=== PATIENT | male | born 1930 | race Caucasian/White ===

== ENCOUNTER → 2016-10-01 11:06 | Outpatient (CLI) | payer MEDICARE, OTHER | END | disposition home or self-care (01) | LOC: D.CT 11:00 | DX: R10.84 Generalized abdominal pain (principal) ==

== ENCOUNTER 2016-10-28 17:42 | Inpatient (IN) | payer MEDICARE, OTHER ==
[~2016-10-28] VITALS: Ht 170.2 cm; Wt 80.6 kg
[2016-10-28 18:12] LABS: BASOPHILS 0.1 % (0-2); EOSINOPHILS 0.9 % (0-7); HEMATOCRIT 31.4 % (42.0-54.0); HEMOGLOBIN 10.5 g/dL (13.5-17.5); IMMATURE GRANULOCYTES 0.4 % (0-5); LYMPHOCYTES 15.9 % (15-50); MCH 34.4 pg (26.0-34.0); MCHC 33.4 g/dL (31.0-37.0); MEAN PLATELET VOLUME 11.1 fL (7.4-10.4); MONOCYTES 11.3 % (2-11); NEUTROPHILS 71.4 % (40-80); PLATELET COUNT 140 10x3/uL (130-400); RBC 3.05 10x6/uL (4.20-6.10); RDW 15.7 % (11.5-14.5)
[2016-10-28 18:26] LABS: ALBUMIN 3.2 g/dL (3.4-5.0); ANION GAP 12.6 mmol/L (8-16); BILIRUBIN - TOTAL 0.67 mg/dL (0.2-1.3); CALCIUM 8.5 mg/dL (8.5-10.1); CARBON DIOXIDE 28.4 mmol/L (21.0-32.0); CREATININE - SERUM 1.2 mg/dL (0.6-1.3); PROTEIN - SERUM 7.5 g/dL (6.4-8.2)
[2016-10-28 20:00] VITALS: BP 103/58
[2016-10-28 20:29] LABS: APPEARANCE CLEAR (CLEAR); BILIRUBIN NEGATIVE (NEGATIVE); COLOR DK YELLOW (YELLOW); GLUCOSE NEGATIVE (NEGATIVE); KETONE NEGATIVE (NEGATIVE); LEUKOCYTE ESTERASE NEGATIVE (NEGATIVE); NITRITE NEGATIVE (NEGATIVE); PROTEIN NEGATIVE (NEGATIVE); UROBILINOGEN NORMAL (NORMAL)
--- NOTE | 2016-10-28 20:33 | NUR ---
REPORT RECIEVED FROM RIDGE MARQUEZ IN ON TORITO NIEVES.
--- NOTE | 2016-10-28 20:35 | NUR ---
PT ARRIVED TO ROOM WITH HOSPITAL STAFF. TRANSFERED TO BED WITH MINIMAL ASSIST. PT HAS 2L OF O2 PRN FOR SOB. PT DENIES ANY SOB AT THIS TIME. PT A&O X4. NO S/S OF DISTRESS. PT ASKS FOR A PHONE BOOK AND HOW TO USE HIS ROOM PHONE, NO OTHER NEEDS. WILL CPOC
[2016-10-28] MEDS ORDERED: XALATAN 0.0052.5 ML (21:14)
[2016-10-28] MEDS ORDERED: CIPRODEX OTIC7.5 ML (21:16)
[2016-10-28] MEDS ORDERED: [UNRECOGNIZED DRUG - REMARK] (23:24)
[2016-10-28] MEDS ORDERED: [UNRECOGNIZED DRUG - SUPPLY] (23:25)
[2016-10-28] MEDS ORDERED: EFFER-K 25 MEQ25 MEQ PO (23:30)
[2016-10-28] MEDS ORDERED: FLOMAX0.4 MG PO (23:32)
[2016-10-28] MEDS ORDERED: CARDIOTEK RX TA1 TA1 PO (23:33)
[2016-10-28] MEDS ORDERED: CO Q-10200 MG PO (23:34)
[2016-10-28] MEDS ORDERED: PROBIOTIC250 MG PO (23:35)
[2016-10-28] MEDS ORDERED: FISH OIL 1,2001 CAP PO (23:35)
[2016-10-28] MEDS ORDERED: VITAMIN D2000 UNIT PO (23:37)
[2016-10-28] MEDS ORDERED: VITAMIN B-12500 MC1 PO (23:40)
[2016-10-28] MEDS ORDERED: FOLIC ACID1 MG PO (23:42)
[2016-10-28] MEDS ORDERED: VITAMIN B650 MG PO (23:43)
[2016-10-28] MEDS ORDERED: SAW PALMETTO450 MG PO (23:43)
[2016-10-28] MEDS ORDERED: [UNRECOGNIZED DRUG - OTHER] (23:47)
[2016-10-28] MEDS ORDERED: [UNRECOGNIZED DRUG - OTHER] (23:48)
[2016-10-29] VITALS (7 sets, daily range): BP systolic 98–132; BP diastolic 51–70; Ht 170.2 cm; Wt 80.6 kg
--- NOTE | 2016-10-29 01:18 | NUR ---
PT RESTING AT BEDSIDE. NS INFUSING TO LEFT FOREARM AT 100. DENIES ANY NEEDS. NO S/S OF DISTRESS. BED LOW AND CALL LIGHT WITHIN REACH. WILL CPOC
--- NOTE | 2016-10-29 04:55 | NUR ---
PT ASLEEP. RESPIRATIONS EVEN AND UNLABORED. NO S/S OF DISTRESS. BED LOW AND CALL LIGHT WITHIN REACH. NS INFUSING @ 100 TO LEFT FOREARM IV. WILL CPOC
--- NOTE | 2016-10-29 07:30 | NUR ---
AM ROUNDS- PT UP AD REYNA TO BATHROOM. DENIES ANY NEEDS AT THIS TIME. LT FA IV INFUSING NS AT 100. NAD NOTED, WILL CONTINUE TO MONITOR.
--- NOTE | 2016-10-29 10:44 | NUR ---
NEW BAG OF IVF HUNG AT THIS TIME. AND GAVE PROBIOTIC SCHEDULED. PT IN BED, DENIES ANY NEEDS AT THIS TIME. CALL LIGHT IN REACH, RESP EVEN AND UNLABORED, NAD NOTED, WILL CONTINUE TO MONITOR.
[2016-10-29 16:08] LABS: HEMOGLOBIN A1C 6.2 % (4.8-6.0)
--- NOTE | 2016-10-29 19:52 | NUR ---
PT RESTING IN ROOM. PT STATES HE IS NOT IN PAIN. PT ASLO DENIES ANY NEEDS. NO S/S OF DISTRESS. NS INFUSING TO LEFT FOREARM IV @ 100. BED LOW AND CALL LIGHT WITHIN REACH. WILL CONTINUE POC
[2016-10-30] VITALS: BP 115/76
--- NOTE | 2016-10-30 00:25 | NUR ---
PT ARRIVED IN ROOM. AT BEDSIDE. PICC LINE IN RIGHT UPPER ARM DRESSING CDI. WALKER FROM HOME IN PT ROOM. PT C/O PAIN 6/10 IN LEFT KNEE THAT IS DULL IN THE KNEE AND RADIATES TO ANKLE AND WILSON AND IS SHARP. PT NEEDS ASSIST TO URINATE IN URINAL. LAST OUTPUT 225CC YELLOW. KNEE BRACE AT BEDSIDE MUST BE USED FOR ANY ACTIVITY. PT IS TO KEEP HIS LEG STRAIGHT AND NOT HAVE A BENT KNEE. DRESSING COVERING HIS INCISON ON LEFT KNEE. START OF INCISION OUT OF DRESSING IS APPROXIMATED AND HAS GRACE. PT HAS PITTING 2+ EDEMA ON BILAT LOWER EXTREM. ALSO HAS EDEMA IN GROIN AREA, PENIS AND SCROTUM. PT DENIES ANY NEEDS AT THIS TIME. NO S/S OF DISTRESS. 2L OF O2 VIA NC. BED LOW AND CALL LIGHT WITHIN REACH WILL CPOC .
--- NOTE | 2016-10-30 01:50 | NUR ---
PT IV PUMP IS ALARMING OCCULDED. FLUSHED PT IV NO PAIN, NO SWELLING. REDNESS IS NOTED. DRESSING CDI. PT DENIES ANY NEEDS. NO S/S OF DISTRESS. WILL CPOC
[2016-10-30 04:00] VITALS: BP 110/64
[2016-10-30 06:47] LABS: BASOPHILS 0.3 % (0-2); EOSINOPHILS 1.7 % (0-7); HEMATOCRIT 29.6 % (42.0-54.0); HEMOGLOBIN 9.8 g/dL (13.5-17.5); IMMATURE GRANULOCYTES 0.3 % (0-5); LYMPHOCYTES 27.6 % (15-50); MCH 33.7 pg (26.0-34.0); MCHC 33.1 g/dL (31.0-37.0); MCV 101.7 fL (80.0-100.0); MEAN PLATELET VOLUME 11.5 fL (7.4-10.4); MONOCYTES 13.1 % (2-11); PLATELET COUNT 151 10x3/uL (130-400); RBC 2.91 10x6/uL (4.20-6.10); RDW 15.8 % (11.5-14.5)
[2016-10-30 06:50] LABS: WBC 6.4 10x3/uL (4.8-10.8)
[2016-10-30 07:03] LABS: CALC OSMOLALITY 280 mosm/kg (275-300); CALCIUM 8.2 mg/dL (8.5-10.1); CARBON DIOXIDE 23.6 mmol/L (21.0-32.0); CHLORIDE - SERUM 105 mmol/L (98-107); CREATININE - SERUM 0.9 mg/dL (0.6-1.3); GLUCOSE 117 mg/dL (74-106); POTASSIUM - SERUM 4.5 mmol/L (3.5-5.1); SODIUM 139 mmol/L (136-145); UREA NITROGEN 17 mg/dL (7-18); eGFR NON AFRICAN AMERICAN 85 mL/min (90-120)
--- NOTE | 2016-10-30 07:29 | NUR ---
AM ROUNDS- PT IN BED, STATES THAT HE HAS BEEN UP TO THE BATHROOM ABOUT 20 TIMES DURING THE NIGHT, HE DOES NOT WANT IV FLUIDS ON UNTIL HE TALKS TO THE DOCTOR. STATES " NO DOCTOR CAME IN TO SEE ME YESTERDAY, ARE THEY GOING TO COME TODAY". INFORMED PT THAT SOMEONE WOULD BE IN TO SEE HIM TODAY, WILL LEAVE IVF OFF UNTIL DOCTOR MAKES ROUNDS. PT DENIES ANY OTHER NEEDS AT THIS TIME. BED LOW AND WHEELS LOCKED, BEDSIDE RAILS X2, TELEMETRY SHOWING SR 81, PT ON RA, RESP EVEN AND UNLABORED. CALL LIGHT IN REACH, NAD NOTED, WILL CONTINUE TO MONITOR.
--- NOTE | 2016-10-30 07:44 | NUR ---
PT RESTING IN BED, C/O URINE FREQUENCY. STATES HE DOES NOT URINATE THIS MUCH AT HOME. URINE CULTURE HAS NO GROWTH X2 DAYS NO S/S OF DISTRESS. NO OTHER NEEDS WILL CPOC
[2016-10-30 08:00] VITALS: BP 117/75
--- NOTE | 2016-10-30 09:09 | NUR ---
AMINISTERED MORNING MEDS PT IN BED, DENIES ANY NEEDS AT THIS TIME. CALL LIGHT IN REACH, NAD NOTED, WILL CONTINUE TO MONITOR.
[2016-10-30 12:00] VITALS: BP 116/59
[2016-10-30 16:00] VITALS: BP 114/67
[2016-10-30 16:42] LABS: % SATURATION 45 % (15-55); IRON 103 ug/dl (35-150); TOTAL IRON BIND CAPACITY 224 ug/dl (260-445); UNSAT IRON BIND CAPACITY 121 ug/dl (150-375)
[2016-10-30 20:00] VITALS: BP 127/65
--- NOTE | 2016-10-30 20:02 | NUR ---
PT RESTING IN BED. DENIES ANY NEEDS, NO S/S OF DISTRESS. BED LOW CALL LIGHT IN REACH. PT WILL CALL IF ANY NEEDS WILL CPOC
[2016-10-31 04:00] VITALS: BP 116/94
--- NOTE | 2016-10-31 04:28 | NUR ---
PT RESTING IN BED, LAB DRAWING BLOOD, PT DENIES ANY NEEDS. NO S/S OF DISTRESS. . BED LOW AND CALL LIGHT WITHIN REACH. WILL CPOC
[2016-10-31 04:48] LABS: BASOPHILS 0.1 % (0-2); EOSINOPHILS 1.1 % (0-7); HEMATOCRIT 32.4 % (42.0-54.0); HEMOGLOBIN 10.8 g/dL (13.5-17.5); IMMATURE GRANULOCYTES 0.6 % (0-5); LYMPHOCYTES 34.6 % (15-50); MCH 33.6 pg (26.0-34.0); MCHC 33.3 g/dL (31.0-37.0); MCV 100.9 fL (80.0-100.0); MEAN PLATELET VOLUME 10.4 fL (7.4-10.4); MONOCYTES 11.4 % (2-11); NEUTROPHILS 52.2 % (40-80); PLATELET COUNT 153 10x3/uL (130-400); RBC 3.21 10x6/uL (4.20-6.10); RDW 15.7 % (11.5-14.5)
[2016-10-31 05:02] LABS: ANION GAP 12.1 mmol/L (8-16); CALCIUM 8.6 mg/dL (8.5-10.1); CARBON DIOXIDE 26.1 mmol/L (21.0-32.0); CREATININE - SERUM 1.1 mg/dL (0.6-1.3); POTASSIUM - SERUM 4.2 mmol/L (3.5-5.1)
--- NOTE | 2016-10-31 06:38 | NUR ---
PT DENIES ANY NEEDS. PT RESTING IN BED. DENIES ANY PAIN. NO S/S OF DISTRESS. BED LOW CALL LIGHT WITHIN REACH WILL CPOC
[2016-10-31 08:00] VITALS: BP 123/68
--- NOTE | 2016-10-31 08:32 | NUR ---
ADMINISTERED AM MEDS. PT IN BED, EATING BREAKFAST, DENIES ANY NEEDS AT THIS TIME. CALL LIGHT IN REACH, NAD NOTED, WILL CONTINUE TO MONITOR.
[2016-10-31 12:00] VITALS: BP 126/77
[2016-10-31] MEDS ORDERED: LEVAQUIN750 MG PO (16:04)
--- NOTE | 2016-10-31 16:37 | NUR ---
[facility] CALLED INTO [facility] ON [address]. SPOKE WITH ZENOBIA.
--- NOTE | 2016-10-31 16:50 | NUR ---
PROVIDED VERBAL AND WRITTEN DISCHARGE TEACHING TO PT, WHO VERBALIZED UNDERSTANDING REGARDING DISCHARGE TEACHING. D/C RT FA IV, TIP INTACT, REMOVED HEART MONITOR AND TAKEN TO [facility]. PT WILL CALL WHEN RIDE IS HERE.
--- NOTE | 2016-10-31 17:02 | NUR ---
Patient Name: TORITO NIEVES Admission Status: ER Accout number: [id number] Admission Date: 10-28-2016 : 1930 Admission Diagnosis:OTHER FATIGUE Attending: MANUEL Current LOS: 3 Anticipated DC Date: 10-31-2016 Planned Disposition: Home Primary Insurance: MEDICARE A & B Discharge Planning Comments: * Is the patient Alert and Oriented? Yes 0 * How many steps to enter\exit or inside your home? NONE 0 * PCP DR. GUARDADO 0 * Pharmacy [address] 0 * Preadmission Environment Home Alone 0 * ADLs Independent 0 * Equipment None 0 * Other Equipment NO MEDICAL EQUIPMENT PROVIDER PREFERENCE 0 * List name and contact numbers for known caregivers / representatives who currently or will assist patient after discharge: CHU ROSAS, FRIEND, 0 * Community resources currently utilized None 0 * Please name any agencies selected above. NONE 0 * Additional services required to return to the preadmission environment? No 0 * Can the patient safely return to the preadmission environment? Yes 0 * Has this patient been hospitalized within the prior 30 days at any hospital? No 0 CM RECEIVED DISCHARGE ORDER, MET WITH PT IN ROOM TO DISCUSS DISCHARGE PLANNING AND NEEDS. PT REPORTS LIVING AT HOME INDEPENDENTLY AND ALONE. PT HAS NO MEDICAL EQUIPMENT AND NO OUTSIDE SERVICES ASSISTING IN THE HOME. CM DISCUSSED AVAILABILITY OF HOME HEALTH, REHAB SERVICES AND MEDICAL EQUIPMENT. PT DENIES DISCHARGE NEEDS, REPORTS HE WILL CALL A NEIGHBOR TO PICK HIM UP FOR DISCHARGE HOME TODAY. IMPORTANT MESSAGE FROM MEDICARE PROVIDED AND EXPLAINED. Reed Maker: Stan Chavez
[2016-10-31 19:00] VITALS: BP 154/68
[2016-11-01 07:26] LABS: FOLATE (FOLIC ACID) - SERUM 17.2 ng/mL (>3.0)
== END 2016-10-31 19:15 | disposition home or self-care (01) | DRG 195 ==
LOC: D.ER 17:42 → D.M2 19:20
PROVIDERS: Emergency Medicine; ADMIT Family Medicine
DX: J18.9 Pneumonia, unspecified organism (principal); Z93.3 Colostomy status; R73.9 Hyperglycemia, unspecified; D64.9 Anemia, unspecified; R41.0 Disorientation, unspecified

== ENCOUNTER 2016-11-01 19:36 | Inpatient (IN) | payer MEDICARE, OTHER ==
[~2016-11-01] VITALS: Ht 172.7 cm; Wt 79.5 kg
[~2016-11-01 19:36] MED LIST: CARDIOTEK RX TA1 TA1 PO; CIPRODEX OTIC7.5 ML; CO Q-10200 MG PO; EFFER-K 25 MEQ25 MEQ PO; FISH OIL 1,2001 CAP PO; FLOMAX0.4 MG PO; FOLIC ACID1 MG PO; LEVAQUIN750 MG PO; PROBIOTIC250 MG PO; SAW PALMETTO450 MG PO; VITAMIN B-12500 MC1 PO; VITAMIN B650 MG PO; VITAMIN D2000 UNIT PO; XALATAN 0.0052.5 ML RIGHT EYE; [UNRECOGNIZED DRUG - OTHER]; [UNRECOGNIZED DRUG - OTHER]; [UNRECOGNIZED DRUG - REMARK]; [UNRECOGNIZED DRUG - SUPPLY]
[2016-11-01 20:16] LABS: BASOPHILS 0.1 % (0-2); EOSINOPHILS 0.2 % (0-7); HEMATOCRIT 32.9 % (42.0-54.0); IMMATURE GRANULOCYTES 0.5 % (0-5); LYMPHOCYTES 11.1 % (15-50); MCH 34.2 pg (26.0-34.0); MCHC 33.4 g/dL (31.0-37.0); MCV 102.2 fL (80.0-100.0); MEAN PLATELET VOLUME 11.2 fL (7.4-10.4); MONOCYTES 6.1 % (2-11); PLATELET COUNT 173 10x3/uL (130-400); RBC 3.22 10x6/uL (4.20-6.10); RDW 15.9 % (11.5-14.5)
[2016-11-01 20:28] LABS: WBC 11.5 10x3/uL (4.8-10.8)
[2016-11-01 20:56] LABS: ANION GAP 14.7 mmol/L (8-16); CALCIUM 8.8 mg/dL (8.5-10.1); CARBON DIOXIDE 25.4 mmol/L (21.0-32.0); CREATININE - SERUM 1.3 mg/dL (0.6-1.3); POTASSIUM - SERUM 4.1 mmol/L (3.5-5.1)
[2016-11-01 22:23] LABS: APPEARANCE CLEAR (CLEAR); BILIRUBIN NEGATIVE (NEGATIVE); COLOR YELLOW (YELLOW); GLUCOSE NEGATIVE (NEGATIVE); KETONE NEGATIVE (NEGATIVE); LEUKOCYTE ESTERASE 1+ (NEGATIVE); NITRITE NEGATIVE (NEGATIVE); PROTEIN NEGATIVE (NEGATIVE); SPECIFIC GRAVITY 1.015 (1.005-1.020); UROBILINOGEN NORMAL (NORMAL)
[2016-11-01 22:25] LABS: EPITHELIAL CELLS 0-5 /hpf (0-5)
--- NOTE | 2016-11-01 23:20 | NUR ---
86 yr old male readmitted from ED to [facility] accompanied by ED staff and female friend. Complains of having fevers and chills, shakes, sweats and generally not feeling well. was discharged from here 1 or 2 days ago. Was supposed to have an appointment with a doctor regarding his hernia repair yesterday but had to cancel due to not feeling well. FULL Code status, alert and oriented x 4, wearing glasses, has bilateral hearing aids in, upper denture in, bottom are his own teeth. No wounds, two bruises on right arm, coloctomy bag on and intact. uses his own supplies and does own colostomy care. Denies pain or discomfort at this time. Was diagnosed with pneumonia in ED, blood cultures were obtained x 2, received two IV antibiotics in ED ( Rocephin and Zithromax). Ambulatory, independent with ADLs, oxygen on @ 2L/min. Pulse ox = 98%, only taking homeopathic medications. Has PIV #20 in left arm that is SL. Did not fill Rx when discharged from here. Settled into room 2107, given sandwich and drinks. States he lives alone but gave three phone numbers of three friends who help him, listed on his admit assessment in computer. States his children all live out of [facility].
[2016-11-01 23:33] VITALS: BP 112/60; Ht 172.7 cm; Wt 79.5 kg
[2016-11-02] VITALS: BP 100/76
--- NOTE | 2016-11-02 02:35 | NUR ---
Respirations easy and regular, no signs of distress. Eyes closed, deemed to be sleeping.
[2016-11-02 04:35] VITALS: BP 143/56
--- NOTE | 2016-11-02 07:19 | NUR ---
AM ROUNDS- PT IN BED, WITH EYES CLOSED. BED LOW AND WHEELS LOCKED, BEDSIDE RAILS X2. LT FA IV SL, PT ON 2L NC. CALL LIGHT IN REACH, NAD NOTED, WILL CONTINUE TO MONITOR.
[2016-11-02 09:33] VITALS: BP 114/47
[2016-11-02 12:04] VITALS: BP 124/69
[2016-11-02 16:15] VITALS: BP 114/52
[2016-11-02 19:00] VITALS: BP 117/57
--- NOTE | 2016-11-02 19:30 | NUR ---
Received patient up sitting in chair, in good spirits, reports no fever, sweats, or shakes today. Compliant with medications and treatment. multigrapher on, denies pain or discomfort.
[2016-11-03] VITALS: BP 104/50
[2016-11-03 04:00] VITALS: BP 114/70
--- NOTE | 2016-11-03 05:23 | NUR ---
Slept for long period, up early doing writing, sitting up in chair. 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 Informed patient I would pass this on in report.
[2016-11-03 06:26] LABS: BASOPHILS 0.2 % (0-2); EOSINOPHILS 1.9 % (0-7); HEMOGLOBIN 10.3 g/dL (13.5-17.5); IMMATURE GRANULOCYTES 0.3 % (0-5); LYMPHOCYTES 32.5 % (15-50); MCH 33.8 pg (26.0-34.0); MCHC 33.2 g/dL (31.0-37.0); MCV 101.6 fL (80.0-100.0); MEAN PLATELET VOLUME 10.1 fL (7.4-10.4); NEUTROPHILS 53.1 % (40-80); PLATELET COUNT 164 10x3/uL (130-400); RBC 3.05 10x6/uL (4.20-6.10); RDW 16.2 % (11.5-14.5)
--- NOTE | 2016-11-03 06:30 | NUR ---
Patient showed nurse his right knee. Has crusted area 0.5cm and patient is worried he may have been bit by a Tic, asking if the doctor can do a test to find out, asking if this could be the cause of his fevers, chills and sweats two nights ago. Will pass on in report.
[2016-11-03 06:32] LABS: CALC OSMOLALITY 279 mosm/kg (275-300); CALCIUM 8.6 mg/dL (8.5-10.1); CARBON DIOXIDE 28.9 mmol/L (21.0-32.0); CHLORIDE - SERUM 102 mmol/L (98-107); POTASSIUM - SERUM 3.7 mmol/L (3.5-5.1); SODIUM 138 mmol/L (136-145); UREA NITROGEN 21 mg/dL (7-18); WBC 5.9 10x3/uL (4.8-10.8); eGFR NON AFRICAN AMERICAN 75 mL/min (90-120)
[2016-11-03 06:35] LABS: GLUCOSE 121 mg/dL (74-106)
[2016-11-03 07:56] VITALS: BP 133/77
--- NOTE | 2016-11-03 08:06 | NUR ---
AM ROUNDS - PT IN BED AND APPEARS TO BE SLEEPING WITH EQUALA ND NON LABORED BREATHING. MONITOR SHOWING SR, HR 60. REFUSES SCD. IV TO LEFT ARM, SL. WILL CONTINU EOT MONITOR
[2016-11-03 11:41] VITALS: BP 111/65
--- NOTE | 2016-11-03 14:19 | NUR ---
PT IN SITTING UPO IN THE CHAIR IN HIS ROOM. PT HAS NO NEEDS AT THSI TIME. WILL CONTINUE TO MONITOR
--- NOTE | 2016-11-03 19:15 | NUR ---
REPORT RECIVED. PT RESTING QUIETLY, DENIES NEEDS AT THIS TIME. INTRODUCED SELF AND PLACED NAME ON WHITE BOARD. PT ALERT AND ORIENTED. WILL CTM.
[2016-11-03 20:39] VITALS: BP 126/71
--- NOTE | 2016-11-03 23:52 | NUR ---
PT ASLEEP, RR EVEN AND UNLABORED. WILL CTM.
[2016-11-04] VITALS: BP 103/57
--- NOTE | 2016-11-04 03:01 | NUR ---
PT ASLEEP. RR EVEN AND UNLABORED, WILL CTM.
[2016-11-04 04:00] VITALS: BP 104/62
[2016-11-04 06:37] LABS: BASOPHILS 0 % (0-2); EOSINOPHILS 1.5 % (0-7); HEMATOCRIT 29.5 % (42.0-54.0); HEMOGLOBIN 9.9 g/dL (13.5-17.5); IMMATURE GRANULOCYTES 0.6 % (0-5); LYMPHOCYTES 38.2 % (15-50); MCHC 33.6 g/dL (31.0-37.0); MCV 101.4 fL (80.0-100.0); MEAN PLATELET VOLUME 11.2 fL (7.4-10.4); MONOCYTES 14.6 % (2-11); NEUTROPHILS 45.1 % (40-80); PLATELET COUNT 176 10x3/uL (130-400); RBC 2.91 10x6/uL (4.20-6.10); RDW 15.8 % (11.5-14.5); WBC 4.8 10x3/uL (4.8-10.8)
[2016-11-04 06:57] LABS: CALC OSMOLALITY 278 mosm/kg (275-300); CALCIUM 8.7 mg/dL (8.5-10.1); CARBON DIOXIDE 27.1 mmol/L (21.0-32.0); CHLORIDE - SERUM 103 mmol/L (98-107); GLUCOSE 123 mg/dL (74-106); POTASSIUM - SERUM 3.8 mmol/L (3.5-5.1); SODIUM 138 mmol/L (136-145); UREA NITROGEN 18 mg/dL (7-18); eGFR NON AFRICAN AMERICAN 75 mL/min (90-120)
--- NOTE | 2016-11-04 07:49 | NUR ---
AM ROUNDS - PT IS AWAKE IN BED. YELLOW BAND ON. MONITOR SHOWING SR, HR 68. IV TO LEFT AC, SL. PT REFUSES SCD. COLOSTOMY LEFT SIDE, SELF CARE. PT IS ON ROOM AIR. BED AT LOWEST POSITION. CALL [place] IN USE/REACH. SIDE RAILS UP X2. NO NEEDS AT THSI TIME. WILL CONTINUE TO MONITOR
[2016-11-04 09:46] VITALS: BP 166/76
[2016-11-04 12:26] VITALS: BP 131/66
[2016-11-04 16:06] VITALS: BP 116/68
--- NOTE | 2016-11-04 16:44 | NUR ---
PT IN BED EATING DINNER. NO NEEDS AT THIS TIME
--- NOTE | 2016-11-04 19:37 | NUR ---
PT UP IN CHAIR. GLASSES ON HEARING AIDS IN. SLIP FREE SOCKS ON. PT SHOWING ME HIS ART WORK HE MADE FOR THE FLOOR. PT DENIES ANY NEEDS. NO S/S OF DISTRESS. WILL CPOC
[2016-11-04 20:56] VITALS: BP 111/60
[2016-11-05 00:20] VITALS: BP 125/72
--- NOTE | 2016-11-05 02:11 | NUR ---
PT ASLEEP. RESPIRATIONS EVEN AND UNLABORED. NO S/S OF DISTRESS. BED LOW AND CALL LIGHT WITHIN REACH WILL CONTINUE TO MONITOR
--- NOTE | 2016-11-05 03:38 | NUR ---
PT ASLEEP. RESPIRATIONS EVEN AND UNLABORED. NO S/S OF DISTRESS. BED LOW AND CALL LIGHT WITHIN REACH WILL CPOC
[2016-11-05 06:13] VITALS: BP 108/63
[2016-11-05 06:15] LABS: BASOPHILS 0.2 % (0-2); EOSINOPHILS 1.6 % (0-7); HEMATOCRIT 31.4 % (42.0-54.0); HEMOGLOBIN 10.3 g/dL (13.5-17.5); IMMATURE GRANULOCYTES 0.6 % (0-5); LYMPHOCYTES 42.3 % (15-50); MCH 33.3 pg (26.0-34.0); MCHC 32.8 g/dL (31.0-37.0); MCV 101.6 fL (80.0-100.0); MEAN PLATELET VOLUME 11.2 fL (7.4-10.4); MONOCYTES 14.2 % (2-11); NEUTROPHILS 41.1 % (40-80); PLATELET COUNT 182 10x3/uL (130-400); RBC 3.09 10x6/uL (4.20-6.10); RDW 15.9 % (11.5-14.5); WBC 4.9 10x3/uL (4.8-10.8)
[2016-11-05 06:25] LABS: CALC OSMOLALITY 278 mosm/kg (275-300); CALCIUM 8.6 mg/dL (8.5-10.1); CARBON DIOXIDE 29.1 mmol/L (21.0-32.0); CHLORIDE - SERUM 102 mmol/L (98-107); GLUCOSE 125 mg/dL (74-106); POTASSIUM - SERUM 4.2 mmol/L (3.5-5.1); SODIUM 138 mmol/L (136-145); UREA NITROGEN 18 mg/dL (7-18); eGFR NON AFRICAN AMERICAN 75 mL/min (90-120)
[2016-11-05 08:14] VITALS: BP 125/74
[2016-11-05 12:12] VITALS: BP 111/63
[2016-11-05] MEDS ORDERED: ZITHROMAX500 MG PO (13:47)
[2016-11-05 16:54] VITALS: BP 120/68
--- NOTE | 2016-11-05 17:36 | NUR ---
ALERT AND ORIENTED X4. SITTING UP IN CHAIR. DC RT WRIST IV TIP INTACT. DISCHARGE INSTRUCTIONS PROVIDED VERBALLY AND WRITTEN. WRITTEN PRESCRIPTION PROVIDED. REQUEST TO TAKE SHOWER BEFORE LEAVING. CONTINUE PLAN OF CARE AND SAFETY PRECAUTIONS.
--- NOTE | 2016-11-05 18:21 | NUR ---
Patient Name: TORITO NIEVES Admission Status: ER Accout number: [id number] Admission Date: 11-02-2016 : 1930 Admission Diagnosis: Attending: MANUEL Current LOS: 3 Anticipated DC Date: 11-05-2016 Planned Disposition: Home Primary Insurance: MEDICARE A & B Discharge Planning Comments: * Is the patient Alert and Oriented? Yes 0 * How many steps to enter\exit or inside your home? NONE 0 * PCP DR. GUARDADO 0 * Pharmacy [address] 0 * Preadmission Environment Home Alone 0 * ADLs Independent 0 * Equipment None 0 * Other Equipment NO MEDICAL EQUIPMENT PROVIDER PREFERENCE 0 * List name and contact numbers for known caregivers / representatives who currently or will assist patient after discharge: CHU ROSAS, FRIEND, 0 * Community resources currently utilized None 0 * Please name any agencies selected above. NONE 0 * Additional services required to return to the preadmission environment? No 0 * Can the patient safely return to the preadmission environment? Yes 0 * Has this patient been hospitalized within the prior 30 days at any hospital? Yes 0 CM MET WITH PT IN ROOM TO DISCUSS DISCHARGE PLANNING AND NEEDS. PT REPORTS LIVING AT HOME INDEPENDENTLY AND ALONE. PT HAS NO MEDICAL EQUIPMENT AND NO OUTSIDE SERVICES ASSISTING IN THE HOME. CM DISCUSSED AVAILABILITY OF HOME HEALTH, REHAB SERVICES AND MEDICAL EQUIPMENT. PT DENIES DISCHARGE NEEDS, REPORTS HIS FRIEND WILL PICK HIM UP FOR DISCHARGE HOME. CM OFFERED TO HAVE HOME HEALTH CALL PT AFTER DISCHARGE TO ENSURE HE WAS OK AND NEEDED NO SERVICES AT HOME, PT DECLINED. IMPORTANT MESSAGE FROM MEDICARE PROVIDED AND EXPLAINED. Outpatient Coder: Stan Chavez
--- NOTE | 2016-11-06 16:08 | DS ---
PATIENT:TORITO NIEVES :30 MEDICAL RECORD: [id number] DISCHARGE SUMMARY ADMISSION DATE: 11/02/16 DISCHARGE DATE: 11/05/16 ADMISSION DATE: 11/02/2016 DISCHARGE DATE: 11/05/2016. ADMITTING DIAGNOSES: Acute community-acquired pneumonia, acute delirium, leukocytosis. HOSPITAL COURSE: This is a gentleman of Dr. Lema, admitted with diagnoses as outlined above. Details are well-outlined in the history of present illness, H&P. All events, lab procedures, diagnostic testing are well documented in the records. The patient was admitted, started on Rocephin and azithromycin. Serial chest x-rays followed. Labs and volumes followed. Overall, he improved. CONSULTANTS: Dr. Aguilar, psychiatry. His recommendations were followed. Dr. Aguilar felt that he had had an acute delirium that was resolving. He does have an episodic confusion at home, altered mental status was exhibited on admission; however, this was felt to be a subacute delirium clearing. His white count normalized. His pneumonia showed resolution on the chest x-ray. He is ambulating in the entire length of the nurses' station without any problems. He is afebrile, vital signs stable, specifically temperature 98.2, pulse 84, respirations 18, blood pressure 111/63, O2 sat 98% on room air. LABORATORY DATA: White count 4.9, hemoglobin 10.3. Previous anemia iron stores all adequate, we had checked, ordered a guaiac while here, it was never collected, that can be followed up by [facility], platelets 182. Sodium 138, potassium 4.2, chloride 102, CO2 29, BUN 18, serum creatinine 1, glucose 125, calcium 8.6. He is stable for dismissal home. He will follow up with Dr. Taty Cantu. Per Dr. Aguilar's recommendations, we will have him follow up with [facility]. DISCHARGE DIAGNOSES: Acute community-acquired pneumonia, acute delirium, leukocytosis. Acute delirium, improving, pneumonia with resolution of pneumonia on CT, go home on 3 more days of oral azithromycin. Greater than 30 minutes was spent on this discharge. TRANSINT:[id number] Voice Confirmation ID: [id number] DOCUMENT ID: [id number] Dictated By: SARI SINGH RN I have interviewed/examined the above patient and agree with these documented findings. DISCHARGE SUMMARY REPORT [id number] TORITO NIEVES AMY MD at 1608 CC: [id number] DICTATION DATE: 11/05/161415 TRUCK BODY BUILDER APPRENTICE: 11/06/16 0134 DIS IN 11/05/16 [facility] [address] [place] [address]
== END 2016-11-05 18:46 | disposition home or self-care (01) | DRG 194 ==
LOC: D.ER 19:36 → OBSVTIME 22:04 → D.M2 22:04
PROVIDERS: Emergency Medicine; Nurse Practitioner Acute Care; ADMIT Family Medicine
DX: J18.9 Pneumonia, unspecified organism (principal); F05 Delirium due to known physiological condition; D64.9 Anemia, unspecified

== ENCOUNTER 2016-12-11 08:33 | Day surgery (SDC) | payer MEDICARE, OTHER ==
[~2016-12-11] VITALS: Ht 170.2 cm; Wt 80.7 kg
--- NOTE | ~2016-12-11 | OP ---
PATIENT NAME: TORITO NIEVES MEDICAL RECORD: [id number] :30 LOCATION:D.OPS ADMISSION DATE: SURGEON: SAMI DUMONT MD DATE OF OPERATION: 12/11/2016 PREOPERATIVE DIAGNOSES: 1. Recurrent left inguinal hernia. 2. Coronary artery disease. POSTOPERATIVE DIAGNOSES: 1. Recurrent left inguinal hernia. 2. Coronary artery disease. PROCEDURE: Recurrent left inguinal hernia repair with medium PHS mesh. SURGEON: Sami Dumont MD REPORT OF PROCEDURE: The patient's left groin was prepped and draped in sterile fashion. An oblique incision was made above the inguinal ligament. Electrocautery was used to dissect through the subcutaneous tissue. There was noted to be a large amount of old scar tissue, which made the planes quite difficult to find. Eventually, I was able to dissect down through the external oblique fascia into the inguinal canal. Once in the inguinal canal, there again was noted to be a large amount of inflammatory adhesions present that were chronic in nature. I was able to find the hernia defect and it was a pantaloon hernia defect with fat-containing tissue. The largest portion of it was in a direct component. I was able to push all of this stuff back into the abdominal cavity and placed a medium PHS mesh through the hernia defect and fanned out the outer layer over the inguinal canal. This was then sutured into place with multiple interrupted 0 Vicryls. The mesh appeared to rest in good position. I inspected the remainder of the inguinal canal. I never found evidence of an ilioinguinal nerve. The external oblique fascia was then reapproximated with running 2-0 Vicryl. Asha's and the subcutaneous tissue were reapproximated with interrupted 3-0 Vicryl, and the skin was closed with running subcutaneous 5-0 Monocryl. A 10 mL of 0.25% Marcaine plain was infused into the surrounding tissues, and the wound was dressed appropriately. COMPLICATIONS: None. CONDITION: Stable. ANESTHESIA: General endotracheal and local. BLOOD LOSS: 30 mL. TRANSINT:[id number] Voice Confirmation ID: [id number] DOCUMENT ID: [id number] OPERATIVE REPORT [id number] TORITO NIEVES SAMI DUMONT MD CC: SHAHID GUARDADO MD [id number] DICTATION DATE: 12/11/16 1219 TOOL REPAIRER: 12/11/16 1324 [facility] [address] [place] [address]
[~2016-12-11 08:33] MED LIST changes: +ZITHROMAX500 MG PO
[2016-12-11 09:37] VITALS: BP 128/65; Ht 170.2 cm; Wt 80.7 kg
[2016-12-11 10:37] LABS: BASOPHILS 0.2 % (0-2); EOSINOPHILS 0.4 % (0-7); HEMATOCRIT 33.2 % (42.0-54.0); IMMATURE GRANULOCYTES 0.2 % (0-5); LYMPHOCYTES 47.5 % (15-50); MCHC 33.1 g/dL (31.0-37.0); MCV 102.5 fL (80.0-100.0); MEAN PLATELET VOLUME 10.9 fL (7.4-10.4); NEUTROPHILS 38.7 % (40-80); RBC 3.24 10x6/uL (4.20-6.10); WBC 4.6 10x3/uL (4.8-10.8)
[2016-12-11 10:49] LABS: PLATELET COUNT 114 10x3/uL (130-400)
[2016-12-11 10:50] LABS: CALC OSMOLALITY 279 mosm/kg (275-300); CALCIUM 8.5 mg/dL (8.5-10.1); CARBON DIOXIDE 27.2 mmol/L (21.0-32.0); CHLORIDE - SERUM 105 mmol/L (98-107); CREATININE - SERUM 0.9 mg/dL (0.6-1.3); GLUCOSE 98 mg/dL (74-106); INR 1.01 (0.85-1.17); POTASSIUM - SERUM 4.1 mmol/L (3.5-5.1); PROTIME 13.1 SECONDS (11.6-15.0); SODIUM 140 mmol/L (136-145); UREA NITROGEN 15 mg/dL (7-18); eGFR NON AFRICAN AMERICAN 85 mL/min (90-120)
[2016-12-11] MEDS ORDERED: HYDROCODONE-APA1 TAB PO (12:15)
--- NOTE | 2016-12-11 14:25 | NUR ---
PATIENT AMBULATES TO BATHROOM AND ATTEMPTS TO VOID IN TOILET WITHOUT SUCCESS. BLADDER MILDLY DISTENDED TO PALPATION. PATIENT RATES PAIN AT "LESS THAN ONE, IS THERE A ZERO AND A HALF?"
--- NOTE | 2016-12-11 15:30 | NUR ---
PATIENT SITTING IN CHAIR IN ROOM, AWAKE, ALERT, DENIES COMPLAINTS, PATIENT DENIES FEELING URGE TO URINATE. LEFT GROIN DRESSING C/D/I. ASSISTED PATIENT TO AMBULATE AROUND DEPARTMENT, BY STAND-BY ASSIST. PATIENT AMBULATING WELL WITH NO UNSTEADINESS. PATIENT WALKS TO BATHROOM AND URINATES MODERATE AMOUNT IN TOILET. BLADDER NOW NONPALPABLE. LEFT WRIST PIV DC'D WITH TIP INTACT. PATIENT DRESSING IN PERSONAL CLOTHING WITH SPOUSE ASSISTANCE
--- NOTE | 2016-12-11 16:01 | NUR ---
DISCHARGE INSTRUCTIONS REVIEWED WITH PATIENT AND SPOUSE. DISCHARGED HOME VIA WHEELCHAIR TO PRIVATE VEHICLE WITH SPOUSE
== END 2016-12-11 16:01 | disposition home or self-care (01) ==
LOC: D.OPS 08:33
PROVIDERS: Anesthesiology; Surgery
DX: K40.90 Unilateral inguinal hernia, without obstruction or gangrene, not specified as recurrent (principal); I25.10 Atherosclerotic heart disease of native coronary artery without angina pectoris; Z85.038 Personal history of other malignant neoplasm of large intestine; Z01.812 Encounter for preprocedural laboratory examination

== ENCOUNTER 2017-12-24 05:42 | Outpatient (CLI) | payer MEDICARE, OTHER ==
[~2017-12-24] VITALS: Ht 170.2 cm; Wt 78.2 kg
[~2017-12-24 05:42] MED LIST changes: +HYDROCODONE-APA1 TAB PO
[2017-12-24 06:10] LABS: BASOPHILS 0.4 % (0-2); EOSINOPHILS 0.4 % (0-7); HEMATOCRIT 33.3 % (42.0-54.0); HEMOGLOBIN 10.9 g/dL (13.5-17.5); IMMATURE GRANULOCYTES 0.2 % (0-5); LYMPHOCYTES 59.7 % (15-50); MCH 34.1 pg (26.0-34.0); MCHC 32.7 g/dL (31.0-37.0); MCV 104.1 fL (80.0-100.0); MEAN PLATELET VOLUME 9.9 fL (7.4-10.4); MONOCYTES 9.1 % (2-11); NEUTROPHILS 30.2 % (40-80); PLATELET COUNT 103 10x3/uL (130-400); RDW 16.2 % (11.5-14.5); WBC 5.6 10x3/uL (4.8-10.8)
[2017-12-24 06:26] LABS: APTT 28.1 SECONDS (22.8-39.4); INR 1.02 (0.85-1.17)
[2017-12-24 06:29] LABS: CALC OSMOLALITY 280 mosm/kg (275-300); CALCIUM 8.6 mg/dL (8.5-10.1); CARBON DIOXIDE 24.6 mmol/L (21.0-32.0); CHLORIDE - SERUM 104 mmol/L (98-107); GLUCOSE 127 mg/dL (74-106); POTASSIUM - SERUM 3.9 mmol/L (3.5-5.1); SODIUM 139 mmol/L (136-145); UREA NITROGEN 15 mg/dL (7-18); eGFR NON AFRICAN AMERICAN 75 mL/min (90-120)
[2017-12-24 07:43] VITALS: BP 115/66; Ht 170.2 cm; Wt 78.2 kg
== END 2017-12-24 11:24 | disposition home or self-care (01) ==
LOC: D.SP 05:42 → D.CT 08:00 → D.SP 08:00
PROVIDERS: Radiology Diagnostic Radiology
DX: D75.89 Other specified diseases of blood and blood-forming organs (principal); D64.9 Anemia, unspecified; D69.6 Thrombocytopenia, unspecified; Z01.812 Encounter for preprocedural laboratory examination

== ENCOUNTER 2019-11-17 11:49 | Inpatient (IN) | payer MEDICARE, OTHER ==
[~2019-11-17] VITALS: Ht 170.2 cm; Wt 84.8 kg
[2019-11-17 12:53] LABS: CALC OSMOLALITY 290 mosm/kg (275-300); CARBON DIOXIDE 22.6 mmol/L (21.0-32.0); CHLORIDE - SERUM 99 mmol/L (98-107); CREATININE - SERUM 1.3 mg/dL (0.6-1.3); SODIUM 132 mmol/L (136-145); UREA NITROGEN 46 mg/dL (7-18); eGFR NON AFRICAN AMERICAN 55 mL/min (90-120)
[2019-11-17 12:54] LABS: BASOPHILS 0.1 % (0-2); EOSINOPHILS 0 % (0-7); HEMATOCRIT 24.4 % (42.0-54.0); HEMOGLOBIN 7.6 g/dL (13.5-17.5); IMMATURE GRANULOCYTES 0.3 % (0-5); LYMPHOCYTES 26.7 % (15-50); MCH 33.3 pg (26.0-34.0); MCHC 31.1 g/dL (31.0-37.0); MEAN PLATELET VOLUME 11.6 fL (7.4-10.4); MONOCYTES 10.2 % (2-11); NEUTROPHILS 62.7 % (40-80); RBC 2.28 10x6/uL (4.20-6.10); WBC 10.5 10x3/uL (4.8-10.8)
[2019-11-17 12:57] LABS: GLUCOSE 352 mg/dL (74-106)
[2019-11-17 13:01] LABS: ALBUMIN 3.4 g/dL (3.4-5.0); ALKALINE PHOSPHATASE 66 U/L (30-120); ALT (SGPT) 103 U/L (10-68); BILIRUBIN - TOTAL 0.51 mg/dL (0.2-1.3); CREATINE KINASE 30 UL (21-232); PLATELET COUNT 212 10x3/uL (130-400); TROPONIN-I < 0.017 ng/mL (0.000-0.060)
[2019-11-17 17:00] VITALS: BP 119/63
[2019-11-17 17:30] VITALS: BP 117/70
[2019-11-17 18:00] VITALS: BP 121/63
[2019-11-17 18:30] VITALS: BP 111/63
--- NOTE | 2019-11-17 19:10 | NUR ---
REPORT RECIEVED FROM JIMMY MACHUCA AND JIMMY SANCHEZ
[2019-11-17 19:18] LABS: APTT 27.9 SECONDS (22.8-39.4); INR 1.06 (0.85-1.17); PROTIME 13.7 SECONDS (11.6-15.0)
[2019-11-17 19:35] LABS: CKMB 1.2 U/L (0.0-3.6); CREATINE KINASE 22 UL (21-232); TROPONIN-I 0.032 ng/mL (0.000-0.060)
--- NOTE | 2019-11-17 22:05 | NUR ---
PT ASSISTED WITH CLEANING OF COLOSTOMY BAG. PT DENIES OTHER COMPLAINTS AT THIS TIME. WILL CONTINUE TO MONITOR
[2019-11-17 22:30] VITALS: BP 100/64
--- NOTE | 2019-11-17 22:34 | NUR ---
PT REFUSED EYE DROPS AT THIS TIME
[2019-11-18] VITALS (10 sets, daily range): BP systolic 114–141; BP diastolic 58–87; BMI 29.3
--- NOTE | 2019-11-18 00:32 | NUR ---
PT IN BED RESTING AT THIS TIME. PT DENIES OTHER COMPLAINTS AT THIS TIME. NO ACUTE DISTRESS NOTED, BED IN LOWEST POSITION, CALL LIGHT WITHIN REACH, WILL CONTINUE TO MONITOR.
[2019-11-18 02:03] LABS: CKMB 1.3 U/L (0.0-3.6); CREATINE KINASE 30 UL (21-232); TROPONIN-I < 0.017 ng/mL (0.000-0.060)
--- NOTE | 2019-11-18 05:52 | NUR ---
PT ASSISTED UP TO CHAIR AND BED LINENS CHANGED AT REQUEST. PT ASSISTED WITH CLEANING OF COLOSTOMY BAG. PT DENIES OTHER NEEDS AT THIS TIME.
--- NOTE | 2019-11-18 07:04 | NUR ---
INFUSION OF PROTONIX COMPLETE AT THIS TIME.
--- NOTE | 2019-11-18 07:12 | NUR ---
REPORT TO JIMMY SUMMERS
[2019-11-18 07:14] LABS: BASOPHILS 0.2 % (0-2); EOSINOPHILS 0 % (0-7); HEMATOCRIT 25.8 % (42.0-54.0); HEMOGLOBIN 8.3 g/dL (13.5-17.5); IMMATURE GRANULOCYTES 0.5 % (0-5); LYMPHOCYTES 33.1 % (15-50); MCH 31.7 pg (26.0-34.0); MCHC 32.2 g/dL (31.0-37.0); MEAN PLATELET VOLUME 10.3 fL (7.4-10.4); MONOCYTES 10.5 % (2-11); NEUTROPHILS 55.7 % (40-80); RBC 2.62 10x6/uL (4.20-6.10); RDW 21.4 % (11.5-14.5); WBC 12.8 10x3/uL (4.8-10.8)
[2019-11-18 07:20] LABS: MCV 98.5 fL (80.0-100.0); PLATELET COUNT 165 10x3/uL (130-400)
--- NOTE | 2019-11-18 07:30 | NUR ---
ASSUMED CAR EOF PT. SLEEPING WITH SNORING RESP. NAD NOTED VSS
[2019-11-18 07:37] LABS: BILIRUBIN NEGATIVE (NEGATIVE); KETONE NEGATIVE (NEGATIVE); NITRITE NEGATIVE (NEGATIVE); UROBILINOGEN NORMAL (NORMAL)
--- NOTE | 2019-11-18 08:00 | NUR ---
AWAKENED EASILY. DENIES C/O RESP EVEN/UNLABORED. FSBS= 338 MG/DL
[2019-11-18 08:44] LABS: ALBUMIN 2.9 g/dL (3.4-5.0); ALKALINE PHOSPHATASE 49 U/L (30-120); CALC OSMOLALITY 293 mosm/kg (275-300); CARBON DIOXIDE 17.8 mmol/L (21.0-32.0); CHLORIDE - SERUM 102 mmol/L (98-107); CKMB 1.7 U/L (0.0-3.6); CREATINE KINASE 60 UL (21-232); CREATININE - SERUM 1.1 mg/dL (0.6-1.3); GLUCOSE 325 mg/dL (74-106); MAGNESIUM - SERUM 1.8 mg/dL (1.8-2.4); POTASSIUM - SERUM 4.3 mmol/L (3.5-5.1); PROTEIN - SERUM 5.8 g/dL (6.4-8.2); SODIUM 134 mmol/L (136-145); UREA NITROGEN 48 mg/dL (7-18); eGFR NON AFRICAN AMERICAN 67 mL/min (90-120)
[2019-11-18 08:48] LABS: ALT (SGPT) 73 U/L (10-68)
[2019-11-18 08:49] LABS: TROPONIN-I < 0.017 ng/mL (0.000-0.060)
--- NOTE | 2019-11-18 13:18 | NUR ---
REPORT CALLED TO FRANCHESKA METZ
--- NOTE | 2019-11-18 14:10 | NUR ---
ADMIT TO ROOM # 2240, CONDITION STABLE
[2019-11-19 04:00] VITALS: BP 105/55
[2019-11-19 06:02] LABS: ALBUMIN 2.5 g/dL (3.4-5.0); BILIRUBIN - TOTAL 0.62 mg/dL (0.2-1.3); CREATININE - SERUM 1.1 mg/dL (0.6-1.3); MAGNESIUM - SERUM 1.9 mg/dL (1.8-2.4); POTASSIUM - SERUM 4.4 mmol/L (3.5-5.1); PROTEIN - SERUM 5.3 g/dL (6.4-8.2)
[2019-11-19 06:04] LABS: ANION GAP 13.5 mmol/L (8-16); CARBON DIOXIDE 23.9 mmol/L (21.0-32.0)
[2019-11-19 06:14] LABS: MCH 32.3 pg (26.0-34.0); MCHC 33.3 g/dL (31.0-37.0); MCV 96.9 fL (80.0-100.0); MEAN PLATELET VOLUME 10.5 fL (7.4-10.4); PLATELET COUNT 191 10x3/uL (130-400); RDW 20.8 % (11.5-14.5)
[2019-11-19 06:17] LABS: HEMATOCRIT 18.6 % (42.0-54.0); HEMOGLOBIN 6.2 g/dL (13.5-17.5); RBC 1.92 10x6/uL (4.20-6.10)
--- NOTE | 2019-11-19 06:27 | NUR ---
[facility] CALLED BY LAB. OLIVIA HAM PAGED BY [facility].
[2019-11-19 06:46] LABS: LYMPHOCYTES 11 % (15-50); NEUTROPHILS 86 % (40-80); PLATELET ESTIMATE NORMAL
[2019-11-19 06:47] LABS: ANISOCYTOSIS OCC; ELLIPTOCYTES 1+
[2019-11-19 08:40] VITALS: BP 114/64
--- NOTE | 2019-11-19 09:57 | NUR ---
BLOOD STARTED PRE-INFUSION VS: 0945 TEMP 98.9 HR 117 BP 103/39 PT SITTING IN CHAIR AT BEDSIDE. RESTING WITH EYES CLOSED. NO ACUTE DISTRESS NOTED. DENIES PAIN AT THIS TIME. NEEDS ANTICIPATED AND MET. CONTINUING TO MONITOR
--- NOTE | 2019-11-19 10:12 | NUR ---
TOLERATING INFUSION WELL. NO ADVERSE REACTIONS OR ACUTE DISTRESS NOTED. DENIES PAIN AT THIS TIME. RESTING WITH EYES CLOSED IN CHAIR AT BEDSIDE. AT BEDSIDE. 15 MIN VS: TEMP 98.4 HR 116 BP 108/57 CALL LIGHT WITHIN REACH. NEEDS ANTICIPATED AND MET. WILL CONTINUE TO MONITOR
[2019-11-19 13:05] VITALS: BMI 29.3
--- NOTE | 2019-11-19 14:27 | NUR ---
OUT OF ROOM FOR EGD
[2019-11-19 15:05] LABS: PATH REVIEW PERIPHERAL SMEAR REVIEWED
--- NOTE | 2019-11-19 15:29 | NUR ---
PT BACK IN ROOM. NO DISTRESS NOTED. LYING IN BED CONVERSING WITH SPOUSE AT BEDSIDE. NEEDS ANTICIPATED AND MET. WILL CONTINUE TO MONITOR
--- NOTE | 2019-11-19 15:37 | NUR ---
VS WHEN RETURNED TO ROOM AFTER EGD TEMP 98.7 BP 112/60 HR 100
[2019-11-19 20:00] VITALS: BP 111/59
--- NOTE | 2019-11-19 20:00 | NUR ---
PATIENT RESTING IN BED WITH AT BEDSIDE. NO S/S OF ACUTE DISTRESS. NO C/O AT THIS TIME. PATIENT HAS RIGHT UPPER ARM IV, PROTONIX @ 8 ML/HR. IV IS PATENT WITHOUT REDNESS, SWELLING, OR TENDERNESS. PATIENT HAS SCRATCH ON RIGHT ANABAPTISM. PATIENT HAS A RIGHT SIDED COLOSTOMY. CALL LIGHT WIHTIN REACH. BED ALARM ON. WILL CONTINUE TO MONITOR.
[2019-11-20] VITALS: BP 125/66
--- NOTE | 2019-11-20 03:29 | NUR ---
I have reviewed this patient and I concur with the Shift Assessment completed by the Licensed Practical Nurse today this shift.
[2019-11-20 04:00] VITALS: BP 108/57
[2019-11-20 06:40] LABS: BASOPHILS 0.3 % (0-2); EOSINOPHILS 0.1 % (0-7); IMMATURE GRANULOCYTES 0.5 % (0-5); MCH 30.7 pg (26.0-34.0); MCHC 32.4 g/dL (31.0-37.0); MEAN PLATELET VOLUME 10.1 fL (7.4-10.4); MONOCYTES 11.5 % (2-11); NEUTROPHILS 56.6 % (40-80); PLATELET COUNT 158 10x3/uL (130-400); RDW 18.3 % (11.5-14.5)
[2019-11-20 06:46] LABS: HEMATOCRIT 24.1 % (42.0-54.0); HEMOGLOBIN 7.8 g/dL (13.5-17.5); MCV 94.9 fL (80.0-100.0); RBC 2.54 10x6/uL (4.20-6.10); WBC 7.4 10x3/uL (4.8-10.8)
--- NOTE | 2019-11-20 08:00 | NUR ---
HE IS ALERT, TALKING. HIS IS AT THE BEDSIDE. DENIES ANY NEEDS. THE CALL LIGHT IS WITHIN REACH.
[2019-11-20 08:21] LABS: ALBUMIN 2.4 g/dL (3.4-5.0); ALKALINE PHOSPHATASE 40 U/L (30-120); ALT (SGPT) 47 U/L (10-68); BILIRUBIN - TOTAL 0.71 mg/dL (0.2-1.3); CALC OSMOLALITY 288 mosm/kg (275-300); CALCIUM 7.7 mg/dL (8.5-10.1); CARBON DIOXIDE 27.1 mmol/L (21.0-32.0); CHLORIDE - SERUM 107 mmol/L (98-107); GLUCOSE 194 mg/dL (74-106); POTASSIUM - SERUM 3.9 mmol/L (3.5-5.1); PROTEIN - SERUM 5.1 g/dL (6.4-8.2); SODIUM 139 mmol/L (136-145); UREA NITROGEN 29 mg/dL (7-18); eGFR NON AFRICAN AMERICAN 75 mL/min (90-120)
[2019-11-20 08:29] LABS: APTT 28.8 SECONDS (22.8-39.4)
[2019-11-20 08:30] LABS: INR 1.11 (0.85-1.17); PROTIME 14.3 SECONDS (11.6-15.0)
--- NOTE | 2019-11-20 09:45 | NUR ---
HE IS BACK FROM THE BONE MARROW BX. HE IS ALERT, TALKING. THE CALL LIGHT IS WITHIN REACH AND HIS IS AT THE BEDSIDE.
[2019-11-20 17:06] VITALS: BP 107/61
[2019-11-20 20:00] VITALS: BP 110/68
--- NOTE | 2019-11-20 20:00 | NUR ---
PATIENT RESTING IN BED WATCHING TV. NO S/S OF ACUTE DISTRESS. NO C/O AT THIS TIME. PATIENT HAS LEFT UPPER ARM, PROTONIC @ 10 ML/HR. IV IS PATENT WITHOUT REDNESS, SWELLING, OR TENDERNESS. PATIENT HAS A LEFT SIDE COLOSTOMY. CALL LIGHT WITHIN REACH. WILL CONTINUE TO MONITOR.
--- NOTE | 2019-11-21 02:55 | NUR ---
I have reviewed this patient and I concur with the Shift Assessment completed by the Licensed Practical Nurse today this shift.
[2019-11-21 04:00] VITALS: BP 119/66
[2019-11-21 06:34] LABS: BASOPHILS 0.3 % (0-2); EOSINOPHILS 0 % (0-7); HEMATOCRIT 22.6 % (42.0-54.0); IMMATURE GRANULOCYTES 1.1 % (0-5); LYMPHOCYTES 22.4 % (15-50); MCH 31.1 pg (26.0-34.0); MCHC 32.3 g/dL (31.0-37.0); MCV 96.2 fL (80.0-100.0); MEAN PLATELET VOLUME 10.8 fL (7.4-10.4); MONOCYTES 3.7 % (2-11); NEUTROPHILS 72.5 % (40-80); PLATELET COUNT 156 10x3/uL (130-400); RBC 2.35 10x6/uL (4.20-6.10); RDW 18.4 % (11.5-14.5); WBC 6.3 10x3/uL (4.8-10.8)
[2019-11-21 06:45] LABS: ALBUMIN 2.5 g/dL (3.4-5.0); ALKALINE PHOSPHATASE 51 U/L (30-120); ALT (SGPT) 58 U/L (10-68); BILIRUBIN - TOTAL 0.69 mg/dL (0.2-1.3); CALC OSMOLALITY 291 mosm/kg (275-300); CALCIUM 7.7 mg/dL (8.5-10.1); CHLORIDE - SERUM 106 mmol/L (98-107); HEMOGLOBIN 7.3 g/dL (13.5-17.5); MAGNESIUM - SERUM 2.2 mg/dL (1.8-2.4); POTASSIUM - SERUM 4.2 mmol/L (3.5-5.1); PROTEIN - SERUM 5.3 g/dL (6.4-8.2); SODIUM 137 mmol/L (136-145); UREA NITROGEN 27 mg/dL (7-18); eGFR NON AFRICAN AMERICAN 75 mL/min (90-120)
[2019-11-21 06:46] LABS: GLUCOSE 330 mg/dL (74-106)
--- NOTE | 2019-11-21 06:50 | NUR ---
I CALLED FATOUMATA RODRÍGUEZ APRN, ABOUT THE CRITICAL HEMOGLOBIN THAT WAS REPORTED WITH THIS PATIENT.
--- NOTE | 2019-11-21 09:00 | NUR ---
ALERT AND ORIENTED X4. COLOSTOMY INTACT TO LLQ WITH BOWEL SOUNDS NOTED W/O TENDERNESS ON PALPATION. PATIENT GONE TO RADIOLOGY FOR CTA ABDOMEN/PELVIS. IV TO LEFT UPPPER ARM WITH IVF INFUSING AT PRESCRIBED RATE. DENIES ANY PAIN OR DISCOMFRT AT THIS TIME.
[2019-11-21 09:34] VITALS: BP 103/52
--- NOTE | 2019-11-21 13:30 | NUR ---
STARTED 1ST UNIT PRBC'S WITH NO S/S OF REACTION NOTED
[2019-11-21 13:32] VITALS: BP 123/70
[2019-11-21 13:36] VITALS: Ht 170.2 cm; Wt 84.8 kg
--- NOTE | 2019-11-21 16:00 | NUR ---
FINISHED 1ST UNIT PRBCS WITH NO S/S OF REACTION NOTED.
--- NOTE | 2019-11-21 16:20 | NUR ---
STARTED 2ND UNIT PRBC'S WITH NO S/S OF REACTION NOTED.
[2019-11-21 17:45] VITALS: BP 107/47
--- NOTE | 2019-11-22 02:56 | NUR ---
ALERT AND ORENTED ABLE TO VOICE NEEDS AND WANTS TO STAFF. LEFT ARM IV IN PLACE AND PATEN. FSBS AC AND HS WITH S/S. FSBS WAS 454 CALL TO ORACLE PROGRAMMER ANALYST NEW ORDER TO CHANGE FROM LOW S/S TO INTERMEDICT S/S. 2ED UNITD FO PRBC COMPLETED AT 2100 V/S 98.4,P-85, RESP 18, B/P 124/55 RESTING WITH NO NEEDS AT THIS TIME.
[2019-11-22 07:15] LABS: HEMATOCRIT 28.6 % (42.0-54.0); HEMOGLOBIN 9.4 g/dL (13.5-17.5); MCH 30.8 pg (26.0-34.0); MCHC 32.9 g/dL (31.0-37.0); MCV 93.8 fL (80.0-100.0); MEAN PLATELET VOLUME 10.8 fL (7.4-10.4); PLATELET COUNT 119 10x3/uL (130-400); RBC 3.05 10x6/uL (4.20-6.10); RDW 18.4 % (11.5-14.5); WBC 8.5 10x3/uL (4.8-10.8)
[2019-11-22 07:45] LABS: LYMPHOCYTES 32 % (15-50); NEUTROPHILS 66 % (40-80)
[2019-11-22 07:46] LABS: PLATELET ESTIMATE NORMAL
[2019-11-22 07:47] LABS: ELLIPTOCYTES 1+
[2019-11-22 07:48] LABS: ANISOCYTOSIS OCC; SCHISTOCYTES OCC
[2019-11-22 07:58] LABS: ALBUMIN 2.6 g/dL (3.4-5.0); ANION GAP 12.4 mmol/L (8-16); BILIRUBIN - TOTAL 0.61 mg/dL (0.2-1.3); CALCIUM 7.9 mg/dL (8.5-10.1); CARBON DIOXIDE 23.3 mmol/L (21.0-32.0); CREATININE - SERUM 1.2 mg/dL (0.6-1.3); MAGNESIUM - SERUM 2.1 mg/dL (1.8-2.4); POTASSIUM - SERUM 3.7 mmol/L (3.5-5.1); PROTEIN - SERUM 5.2 g/dL (6.4-8.2)
[2019-11-22 09:17] VITALS: BP 114/57
[2019-11-22 14:06] LABS: APTT 25.6 SECONDS (22.8-39.4); INR 1.15 (0.85-1.17); PROTIME 14.6 SECONDS (11.6-15.0)
--- NOTE | 2019-11-22 19:00 | NUR ---
PATIENT ALERT AND ORIENTED TALKING ON CELL PHONE WHEN ENTERING THE ROOM. PATIENT ON PHONE HAVING CONVERSATION DISCUSSING TERMINAL ILLNESS WITH FAMILY/FRIEND. PATIENT ENDS CONVERSATION AND SPEAKS WITH THIS NURSE ABOUT CANCER AND MASS. PATIENT STATES SEVERAL TIMES DURING CONVERSATION "TOMORROW IS A BIG DAY FOR ME. I AM GOING TO ." PROVIDED SUPPORT TO PATIENT. ASSESSMENT PERFORMED. PATIENT DENIES FURTHER NEEDS. CALL LIGHT CLOSE. CPOC.
[2019-11-22 19:09] VITALS: BP 136/70
[2019-11-22 20:00] VITALS: BP 137/75
[2019-11-23] VITALS: BP 109/65
--- NOTE | 2019-11-23 01:55 | NUR ---
RESTING WITH NO SIGNS OR SYMPTOMS OF DISTRESS. CURRENTLY LAYING ON LEFT SIDE AND UNLABORED RESPIRATIONS NOTED. CALL LIGHT CLOSE. CPOC.
[2019-11-23 04:00] VITALS: BP 134/82
--- NOTE | 2019-11-23 05:54 | NUR ---
IV INFILTRATED. REMOVED WITH CATH INTACT. PATIENT INCONTINENT OF URINE. BED CHANGE AND BATH PROVIDED. ATTEMPTED TO RESITE IV X 2 ATTEMPTS. UNSUCCESSFUL. PATIENT TIRED, ASKED THAT WE STOP PATIENT DOES NOT LIKE NEEDLES. ORDER FOR VASCULAR ACCESS PLACED DUE TO SEVERAL ATTEMPTS SINCE ADMISSION.
[2019-11-23 06:28] LABS: BASOPHILS 0.3 % (0-2); EOSINOPHILS 0.6 % (0-7); HEMATOCRIT 34.2 % (42.0-54.0); HEMOGLOBIN 10.8 g/dL (13.5-17.5); IMMATURE GRANULOCYTES 0.4 % (0-5); LYMPHOCYTES 33.3 % (15-50); MCH 31.1 pg (26.0-34.0); MCHC 31.6 g/dL (31.0-37.0); MEAN PLATELET VOLUME 12.2 fL (7.4-10.4); MONOCYTES 6.5 % (2-11); NEUTROPHILS 58.9 % (40-80); PLATELET COUNT 101 10x3/uL (130-400); RBC 3.47 10x6/uL (4.20-6.10); RDW 19.6 % (11.5-14.5); WBC 7.3 10x3/uL (4.8-10.8)
[2019-11-23 06:29] LABS: MCV 98.6 fL (80.0-100.0)
[2019-11-23 08:56] VITALS: BP 111/70
[2019-11-23 10:57] LABS: ALBUMIN 2.6 g/dL (3.4-5.0); ALKALINE PHOSPHATASE 61 U/L (30-120); BILIRUBIN - TOTAL 0.79 mg/dL (0.2-1.3); CALCIUM 7.3 mg/dL (8.5-10.1); CARBON DIOXIDE 21.1 mmol/L (21.0-32.0); CHLORIDE - SERUM 107 mmol/L (98-107); CREATININE - SERUM 0.9 mg/dL (0.6-1.3); POTASSIUM - SERUM 4.2 mmol/L (3.5-5.1); PROTEIN - SERUM 5.3 g/dL (6.4-8.2); SODIUM 138 mmol/L (136-145); UREA NITROGEN 20 mg/dL (7-18); eGFR NON AFRICAN AMERICAN 84 mL/min (90-120)
[2019-11-23 10:58] LABS: ALT (SGPT) 85 U/L (10-68); CALC OSMOLALITY 281 mosm/kg (275-300); GLUCOSE 151 mg/dL (74-106)
[2019-11-23 12:39] VITALS: BP 112/59
--- NOTE | 2019-11-23 15:48 | NUR ---
Nutrition Follow-up: Diet: Regular PO intake: ~50% average x last 3 meals. Patient states that his appetite has been down but he feels that it is improving some now. He would like to receive strawberry or vanilla Ensure on meal trays. He states that he likes sweets. Last BM: 11/22/19 x 2 (ostomy). Wt: 187# (11/19/19) Meds noted: lantus, metformin, SSI. Labs noted: Glu 151(H) Recommend continue current diet as PO intake is less than optimal. Will add Glucerna TID with meals. RD following.
[2019-11-23 18:45] VITALS: BP 106/59
[2019-11-23 20:00] VITALS: BP 113/54
[2019-11-24 04:00] VITALS: BP 117/63
[2019-11-24 05:15] LABS: BASOPHILS 0 % (0-2); EOSINOPHILS 0.4 % (0-7); HEMATOCRIT 33.7 % (42.0-54.0); HEMOGLOBIN 10.9 g/dL (13.5-17.5); IMMATURE GRANULOCYTES 0.4 % (0-5); LYMPHOCYTES 27.2 % (15-50); MCH 30.8 pg (26.0-34.0); MCHC 32.3 g/dL (31.0-37.0); MEAN PLATELET VOLUME 10.4 fL (7.4-10.4); MONOCYTES 8.8 % (2-11); NEUTROPHILS 63.2 % (40-80); PLATELET COUNT 111 10x3/uL (130-400); RBC 3.54 10x6/uL (4.20-6.10); RDW 18.6 % (11.5-14.5); WBC 7.7 10x3/uL (4.8-10.8)
[2019-11-24 05:27] LABS: MCV 95.2 fL (80.0-100.0)
[2019-11-24 05:56] LABS: ALBUMIN 2.5 g/dL (3.4-5.0); ALKALINE PHOSPHATASE 57 U/L (30-120); BILIRUBIN - TOTAL 0.88 mg/dL (0.2-1.3); CALC OSMOLALITY 279 mosm/kg (275-300); CALCIUM 8.1 mg/dL (8.5-10.1); CHLORIDE - SERUM 105 mmol/L (98-107); CREATININE - SERUM 0.9 mg/dL (0.6-1.3); GLUCOSE 104 mg/dL (74-106); PROTEIN - SERUM 5.7 g/dL (6.4-8.2); SODIUM 139 mmol/L (136-145); UREA NITROGEN 18 mg/dL (7-18); eGFR NON AFRICAN AMERICAN 84 mL/min (90-120)
[2019-11-24 05:58] LABS: ALT (SGPT) 107 U/L (10-68); CARBON DIOXIDE 27.3 mmol/L (21.0-32.0)
--- NOTE | 2019-11-24 07:05 | NUR ---
A&O SITTING UP IN CHAIR. NO C/O PAIN. NO S/S OF ACUTE DISTRESS NOTED. CHAIR ALARM ON. UP WITH ASSIST. LLQ COLOSTOMY. NO IV ACCESS, AWAITING VASCULAR ACCESS. ON TELEMETRY SR 77. DENIES ANY NEEDS AT THIS TIME. CALL LIGHT IN REACH. WILL CONTINUE TO MONITOR.
[2019-11-24 09:13] VITALS: BP 125/71
--- NOTE | 2019-11-24 10:37 | NUR ---
I have reviewed this patient and I concur with the Shift Assessment completed by the Licensed Practical Nurse today this shift.
[2019-11-24 12:56] VITALS: BP 120/73
[2019-11-24 17:51] VITALS: BP 128/75
--- NOTE | 2019-11-24 18:20 | NUR ---
RESTING IN BED WITH EYES OPEN. NO C/O PAIN. NO S/S OF ACUTE DISTRESS NOTED. DENIES ANY NEEDS AT THIS TIME. CALL LIGHT IN REACH. WILL CONTINUE TO MONITOR.
--- NOTE | 2019-11-24 19:30 | NUR ---
PT SITTING UP IN BED WITHOUT DISTRESS, AOX4. AT BEDSIDE. DENIES NEEDS AT THIS TIME. CL IN REACH, WILL CTM
[2019-11-24 20:00] VITALS: BP 133/85
[2019-11-25] VITALS: BP 126/66
[2019-11-25 04:00] VITALS: BP 107/64
[2019-11-25 06:56] LABS: BASOPHILS 0.2 % (0-2); EOSINOPHILS 0.5 % (0-7); HEMATOCRIT 32.2 % (42.0-54.0); HEMOGLOBIN 10.2 g/dL (13.5-17.5); IMMATURE GRANULOCYTES 0.2 % (0-5); LYMPHOCYTES 24.7 % (15-50); MCH 30.4 pg (26.0-34.0); MCHC 31.7 g/dL (31.0-37.0); MCV 96.1 fL (80.0-100.0); MEAN PLATELET VOLUME 11.3 fL (7.4-10.4); MONOCYTES 10.3 % (2-11); NEUTROPHILS 64.1 % (40-80); PLATELET COUNT 106 10x3/uL (130-400); RBC 3.35 10x6/uL (4.20-6.10); RDW 18.6 % (11.5-14.5); WBC 6.2 10x3/uL (4.8-10.8)
[2019-11-25 07:32] LABS: ALBUMIN 2.5 g/dL (3.4-5.0); ALKALINE PHOSPHATASE 59 U/L (30-120); ALT (SGPT) 113 U/L (10-68); BILIRUBIN - TOTAL 0.93 mg/dL (0.2-1.3); CALC OSMOLALITY 275 mosm/kg (275-300); CALCIUM 7.9 mg/dL (8.5-10.1); CARBON DIOXIDE 27.1 mmol/L (21.0-32.0); CHLORIDE - SERUM 104 mmol/L (98-107); CREATININE - SERUM 0.8 mg/dL (0.6-1.3); GLUCOSE 117 mg/dL (74-106); POTASSIUM - SERUM 4.1 mmol/L (3.5-5.1); PROTEIN - SERUM 5.6 g/dL (6.4-8.2); SODIUM 137 mmol/L (136-145); UREA NITROGEN 16 mg/dL (7-18); eGFR NON AFRICAN AMERICAN > 90 mL/min (90-120)
[2019-11-25 09:35] VITALS: BP 100/79
--- NOTE | 2019-11-25 10:54 | MORECARE ---
CASE MANAGEMENT DISCHARGE SUMMARY PATIENT: TORITO NIEVES UNIT: [id number] ADM DATE: 11/18/19 AGE: 89 : 30 SEX: M ROOM/BED: D.2240 AUTHOR: URSULA JACKMAN PHYSICIAN: REFERRING PHYSICIAN: OLGA SEGURA MD DATE OF SERVICE: 11/25/19 Discharge Plan Patient Name: TORITO NIEVES Facility: [facility]:[place] : 1930 Planned Disposition: Anticipated Discharge Date: Discharge Date: Expected LOS: Initial Reviewer: [id number] Initial Review Date: 11/25/2019 Generated: 11/25/19 11:54 am Comments DCP- Discharge Planning Updated by [id number]: Génesis Waller on 11/25/19 9:[address] Patient Name: TORITO NIEVES Admission Status: ER Accout number: [id number] Admission Date: 11-18-2019 : 1930 Admission Diagnosis:SYNCOPE AND COLLAPSE Attending: OLGA SEGURA Current LOS: 7 Anticipated DC Date: Planned Disposition: Primary Insurance: MEDICARE A & B Discharge Planning Comments: CM met with patient AND FAMILY MEMBER at bedside after explaining CM role and obtaining verbal consent. CM discussed availability / needs of home health, REHAB and medical equipment. FAMILY STATES UNSURE OF PLAN AT THIS TIME. MAY NEED HH, I WILL VISIT WITH THEM AGAIN CLOSER TO DC TO HELP WITH ANY DC NEEDS. Rate And Cost Analyst: Génesis Waller DCPIA - Discharge Planning Initial Assessment Updated by [id number]: Génesis Waller on 11/25/19 10:52 am * Is the patient Alert and Oriented? Yes * PCP [facility] * [facility] * Preadmission Environment Home with Family * ADLs Independent * Equipment None * List name and contact numbers for known caregivers / representatives who currently or will assist patient after discharge: ALEJANDRA BARBER [phone] * Community resources currently utilized None * Additional services required to return to the preadmission environment? Yes * Can the patient safely return to the preadmission environment? Yes * Has this patient been hospitalized within the prior 30 days at any hospital? No Patient Name: TORITO NIEVES Page [phone] at 1054 All edits/amendments must be made on the electronic document DICTATION DATE: 11/25/19 1054 REHAB PHYSICIAN: AUGUSTINE 11/25/19 1054 RPT#: [id number] DC DATE: STATUS: ADM IN [facility] [address] [place] [address] END OF REPORT
[2019-11-25 13:25] VITALS: BP 102/64
--- NOTE | 2019-11-25 16:10 | NUR ---
I have reviewed this patient and I concur with the Shift Assessment completed by the Licensed Practical Nurse today this shift.
[2019-11-25 17:36] VITALS: BP 107/69
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
[2019-11-25 20:00] VITALS: BP 127/78
--- NOTE | 2019-11-25 21:30 | NUR ---
FSBS 262, COVERAGE PER SS, SEE MAR. EMPTIED URINAL. PT DENIES NEEDS OR PAIN. CL IN REACH, WILL CTM
--- NOTE | 2019-11-25 23:30 | NUR ---
PT LYING IN BED RESTING WITHOUT DISTRESS, DENIES NEEDS. WILL CTM
[2019-11-26] VITALS (7 sets, daily range): BP systolic 122–133; BP diastolic 34–72
[2019-11-26 05:16] LABS: BASOPHILS 0.1 % (0-2); EOSINOPHILS 0.4 % (0-7); HEMATOCRIT 31.9 % (42.0-54.0); HEMOGLOBIN 10.5 g/dL (13.5-17.5); IMMATURE GRANULOCYTES 0.4 % (0-5); MCH 31.9 pg (26.0-34.0); MCHC 32.9 g/dL (31.0-37.0); MEAN PLATELET VOLUME 10.9 fL (7.4-10.4); MONOCYTES 12.6 % (2-11); NEUTROPHILS 63.5 % (40-80); PLATELET COUNT 104 10x3/uL (130-400); RBC 3.29 10x6/uL (4.20-6.10); RDW 18.2 % (11.5-14.5); WBC 6.8 10x3/uL (4.8-10.8)
[2019-11-26 05:37] LABS: ALBUMIN 2.4 g/dL (3.4-5.0); ALKALINE PHOSPHATASE 63 U/L (30-120); ALT (SGPT) 103 U/L (10-68); BILIRUBIN - TOTAL 0.85 mg/dL (0.2-1.3); CALC OSMOLALITY 276 mosm/kg (275-300); CALCIUM 8.1 mg/dL (8.5-10.1); CARBON DIOXIDE 28.2 mmol/L (21.0-32.0); CHLORIDE - SERUM 103 mmol/L (98-107); CREATININE - SERUM 0.9 mg/dL (0.6-1.3); GLUCOSE 118 mg/dL (74-106); POTASSIUM - SERUM 4.2 mmol/L (3.5-5.1); PROTEIN - SERUM 5.6 g/dL (6.4-8.2); SODIUM 137 mmol/L (136-145); UREA NITROGEN 17 mg/dL (7-18); eGFR NON AFRICAN AMERICAN 84 mL/min (90-120)
--- NOTE | 2019-11-26 07:55 | NUR ---
PT IS RESTING IN BED WITH EYES CLOSED. RESPIRATIONS ARE EVEN AND UNLABORED. PT IS EASILY AROUSED WITH VERBAL STIMULATION. PT IS AAO X 4 UPON AROUSAL. PT DENIES PRESENCE OF PAIN/N/V AT THIS TIME. COLOSTOMY NOTED AND WITHOUT COMPROMISE. BED IS IN THE LOWEST POSITION. CALL LIGHT AND BEDSIDE TABLE ARE WITHIN REACH. SIDE RAILS X 2. PT DENIES FURTHER NEEDS. WILL CONT TO MONITOR.
--- NOTE | 2019-11-26 17:18 | NUR ---
ALL CONSENTS FOR PORT PLACEMENT SIGNED BY PATIENT. PT IS AAO X 4. PT DENIES FURTHER QUESTIONS/CONCERNS/NEEDS AT THIS TIME. ALL SIGNED CONSENTS PLACED IN PT CHART.
--- NOTE | 2019-11-26 19:42 | NUR ---
22G PIV TO RIGHT WRIST X 1 ATTEMPT. PT TOLERATED WELL.
--- NOTE | 2019-11-26 20:00 | NUR ---
PT LYING IN BED WITHOUT DISTRESS, AOX4. EMPTIED PT URINAL AND OSTOMY AT THIS TIME. DENIES OTHER NEEDS. CL IN REACH, WILL CTM
--- NOTE | 2019-11-26 22:00 | NUR ---
FSBS 167, COVERAGE PER SS AND GAVE LANTUS, SEE MAR
[2019-11-27] VITALS: BP 122/60
--- NOTE | 2019-11-27 00:45 | NUR ---
CHANGED PT COLOSTOMY AT THIS TIME, PT TOLERATED WELL
[2019-11-27 04:00] VITALS: BP 121/72; BP 127/69
--- NOTE | 2019-11-27 04:30 | NUR ---
PT GIVEN HIBICLENS AND LINENS CHANGED
[2019-11-27 07:10] LABS: HEMATOCRIT 31.1 % (42.0-54.0); HEMOGLOBIN 10.1 g/dL (13.5-17.5); MCH 31.9 pg (26.0-34.0); MCHC 32.5 g/dL (31.0-37.0); MCV 98.1 fL (80.0-100.0); MEAN PLATELET VOLUME 10.9 fL (7.4-10.4); NEUTROPHILS 62.2 % (40-80); PLATELET COUNT 117 10x3/uL (130-400); RBC 3.17 10x6/uL (4.20-6.10); RDW 18.9 % (11.5-14.5)
[2019-11-27 07:18] LABS: ALBUMIN 2.5 g/dL (3.4-5.0); ALKALINE PHOSPHATASE 63 U/L (30-120); ALT (SGPT) 93 U/L (10-68); BILIRUBIN - TOTAL 0.79 mg/dL (0.2-1.3); CALC OSMOLALITY 273 mosm/kg (275-300); CALCIUM 8.2 mg/dL (8.5-10.1); CARBON DIOXIDE 25.6 mmol/L (21.0-32.0); CHLORIDE - SERUM 102 mmol/L (98-107); CREATININE - SERUM 0.8 mg/dL (0.6-1.3); GLUCOSE 97 mg/dL (74-106); PROTEIN - SERUM 5.9 g/dL (6.4-8.2); SODIUM 136 mmol/L (136-145); UREA NITROGEN 17 mg/dL (7-18); eGFR NON AFRICAN AMERICAN > 90 mL/min (90-120)
--- NOTE | 2019-11-27 08:00 | NUR ---
ALERT AND ORIENTED X4. CONTINUED NPO STATUS PENDING PROT PLACEMENT. DENIES ANY PAIN OR DISCOMFORT. TELEMETRY INTACT COLOSTOMY NOTED TO LLQ ANTERIOR. ENCOURAGED TO USE CALL LIGHT FOR ASSSIT.
[2019-11-27 09:52] VITALS: BP 132/72
[2019-11-27] MEDS ORDERED: NYSTATIN100000 UN4 PO (13:06)
[2019-11-27] MEDS ORDERED: GLUCOPHAGE500 MG PO (13:06)
[2019-11-27] MEDS ORDERED: PROTONIX40 MG PO (13:06)
--- NOTE | 2019-11-27 13:11 | NUR ---
PATIENT PREMEDICATED ALERT AND ORIENTED AND LEFT WITH SURGERY STAFF FOR PROCEDURE. STABEL AT TIME OF DEPARTURE
--- NOTE | 2019-11-27 13:59 | MORECARE ---
CASE MANAGEMENT DISCHARGE SUMMARY PATIENT: TORITO NIEVES UNIT: [id number] ADM DATE: 11/18/19 AGE: 89 : 30 SEX: M ROOM/BED: D.2240 AUTHOR: URSULA JACKMAN PHYSICIAN: REFERRING PHYSICIAN: OLGA SEGURA MD DATE OF SERVICE: 11/27/19 Discharge Plan Patient Name: TORITO NIEVES Facility: [facility]:[place] : 1930 Planned Disposition: Anticipated Discharge Date: Discharge Date: Expected LOS: Initial Reviewer: [id number] Initial Review Date: 11/25/2019 Generated: 11/27/19 2:58 pm Comments DCP- Discharge Planning Updated by [email or web address]: Génesis Waller on 11/27/19 12:[address] Patient Name: TORITO NIEVES Admission Status: ER Accout number: [id number] Admission Date: 11-18-2019 : 1930 Admission Diagnosis:SYNCOPE AND COLLAPSE Attending: OLGA SEGURA Current LOS: 9 Anticipated DC Date: Planned Disposition: Primary Insurance: MEDICARE A & B Discharge Planning Comments: PATIENT IS HAVING PORT PLACED. I MET WITH HIS LADY FRIEND AND THEY WOULD LIKE HH AND ALSO NEEDS A WC. DIANE SIGNED FOR [facility] AND [facility] FOR WHEEL CHAIR. I WILL FAX REFERRAL TO BOTH PLACES. IMM SIGNED. CM TO FOLLOW AND ASSIST NEEDED. Bar Host/Hostess: Génesis Waller DCP- Discharge Planning Updated by [email or web address]: Génesis Waller on 11/25/19 9:[address] Patient Name: TORITO NIEVES Admission Status: ER Accout number: [id number] Admission Date: 11-18-2019 : 1930 Admission Diagnosis:SYNCOPE AND COLLAPSE Attending: OLGA SEGURA Current LOS: 7 Anticipated DC Date: Planned Disposition: Primary Insurance: MEDICARE A & B Discharge Planning Comments: CM met with patient AND FAMILY MEMBER at bedside after explaining CM role and obtaining verbal consent. CM discussed availability / needs of home health, REHAB and medical equipment. FAMILY STATES UNSURE OF PLAN AT THIS TIME. MAY NEED HH, I WILL VISIT WITH THEM AGAIN CLOSER TO DC TO HELP WITH ANY DC NEEDS. Bar Host/Hostess: Génesis Waller DCPIA - Discharge Planning Initial Assessment Updated by [email or web address]: Génesis Waller on 11/25/19 10:52 am * Is the patient Alert and Oriented? Yes * PCP [facility] * [facility] * Preadmission Environment Home with Family * ADLs Independent * Equipment None * List name and contact numbers for known caregivers / representatives who currently or will assist patient after discharge: ALEJANDRA BARBER [phone] * Community resources currently utilized None * Additional services required to return to the preadmission environment? Yes * Can the patient safely return to the preadmission environment? Yes * Has this patient been hospitalized within the prior 30 days at any hospital? No External Providers External Provider: [facility] Next Contact Date: Service Request Date: Service Type: Resolution: Reviewer: Comments: External Provider: Sumanth Santo [facility] Next Contact Date: Service Request Date: Service Type: Resolution: Reviewer: Comments: Coverage Notice Reviewer: [id number] Waller Notice Issued Date-Time: 11/27/2019 13:53 Notice Type: IM Discharge Notice Notice Delivered To: Relationship to Patient: Surgical Services Asst Name: Delivery Method: - Coretta Days: Prior Verbal Notification: Recipient Understood Notice: Recipient Signature: Med Rec Note Co-signed by Attending: Coverage Notice Comment: Reviewer: [id number] Bradley Waller Notice Issued Date-Time: 11/27/2019 13:53 Notice Type: Patient Choice Letter Notice Delivered To: Relationship to Patient: Surgical Services Asst Name: Delivery Method: - Coretta Days: Prior Verbal Notification: Recipient Understood Notice: Recipient Signature: Med Rec Note Co-signed by Attending: Coverage Notice Comment: CHU SILVA Last DP export: 11/25/19 9:54 am Patient Name: TORITO NIEVES Page [id number] at 1359 All edits/amendments must be made on the electronic document DICTATION DATE: 11/27/19 1358 TAP PULLER: AUGUSTINE 11/27/19 1358 RPT#: [id number] DC DATE: STATUS: ADM IN [facility] [address] [place] [address] END OF REPORT
[2019-11-27 15:36] VITALS: BP 139/80
--- NOTE | 2019-11-27 15:36 | MORECARE ---
CASE MANAGEMENT DISCHARGE SUMMARY PATIENT: TORITO NIEVES UNIT: [id number] ADM DATE: 11/18/19 AGE: 89 : 30 SEX: M ROOM/BED: D.2240 AUTHOR: URSULA JACKMAN PHYSICIAN: REFERRING PHYSICIAN: OLGA SEGURA MD DATE OF SERVICE: 11/27/19 Discharge Plan Patient Name: TORITO NIEVES Facility: [facility]:[place] : 1930 Planned Disposition: Anticipated Discharge Date: Discharge Date: Expected LOS: Initial Reviewer: [email or web address] Initial Review Date: 11/25/2019 Generated: 11/27/19 4:35 pm Comments DCP- Discharge Planning Updated by [email or web address]: Génesis Waller on 11/27/19 2:[address] Patient Name: TORITO NIEVES Admission Status: ER Accout number: [id number] Admission Date: 11-18-2019 : 1930 Admission Diagnosis:SYNCOPE AND COLLAPSE Attending: OLGA SEGURA Current LOS: 9 Anticipated DC Date: Planned Disposition: Primary Insurance: MEDICARE A & B Discharge Planning Comments: CM SPOKE WITH [facility] AND THEY WILL DELIVER THE WHEELCHAIR TO HIS HOSPITAL ROOM TODAY. Tent Finisher: Génesis Waller DCP- Discharge Planning Updated by [email or web address]: Génesis Waller on 11/27/19 12:[address] Patient Name: TORITO NIEVES Admission Status: ER Accout number: [id number] Admission Date: 11-18-2019 : 1930 Admission Diagnosis:SYNCOPE AND COLLAPSE Attending: OLGA SEGURA Current LOS: 9 Anticipated DC Date: Planned Disposition: Primary Insurance: MEDICARE A & B Discharge Planning Comments: PATIENT IS HAVING PORT PLACED. I MET WITH HIS LADY FRIEND AND THEY WOULD LIKE HH AND ALSO NEEDS A WC. DIANE SIGNED FOR [facility] AND [facility] FOR WHEEL CHAIR. I WILL FAX REFERRAL TO BOTH PLACES. IMM SIGNED. CM TO FOLLOW AND ASSIST NEEDED. Tent Finisher: Génesis Waller DCP- Discharge Planning Updated by [email or web address]: Génesis Waller on 11/25/19 9:[address] Patient Name: TORITO NIEVES Admission Status: ER Accout number: [id number] Admission Date: 11-18-2019 : 1930 Admission Diagnosis:SYNCOPE AND COLLAPSE Attending: OLGA SEGURA Current LOS: 7 Anticipated DC Date: Planned Disposition: Primary Insurance: MEDICARE A & B Discharge Planning Comments: CM met with patient AND FAMILY MEMBER at bedside after explaining CM role and obtaining verbal consent. CM discussed availability / needs of home health, REHAB and medical equipment. FAMILY STATES UNSURE OF PLAN AT THIS TIME. MAY NEED HH, I WILL VISIT WITH THEM AGAIN CLOSER TO DC TO HELP WITH ANY DC NEEDS. Tent Finisher: Génesis Waller DCPIA - Discharge Planning Initial Assessment Updated by [email or web address]: Génesis Waller on 11/25/19 10:52 am * Is the patient Alert and Oriented? Yes * PCP [facility] * [facility] * Preadmission Environment Home with Family * ADLs Independent * Equipment None * List name and contact numbers for known caregivers / representatives who currently or will assist patient after discharge: ALEJANDRA BARBER [phone] * Community resources currently utilized None * Additional services required to return to the preadmission environment? Yes * Can the patient safely return to the preadmission environment? Yes * Has this patient been hospitalized within the prior 30 days at any hospital? No Coverage Notice Reviewer: [email or web address] Bradley Waller Notice Issued Date-Time: 11/27/2019 13:53 Notice Type: IM Discharge Notice Notice Delivered To: Relationship to Patient: Collar Worker Name: Delivery Method: - Coretta Days: Prior Verbal Notification: Recipient Understood Notice: Recipient Signature: Med Rec Note Co-signed by Attending: Coverage Notice Comment: Reviewer: [id number] Bradley Waller Notice Issued Date-Time: 11/27/2019 13:53 Notice Type: Patient Choice Letter Notice Delivered To: Relationship to Patient: Collar Worker Name: Delivery Method: - Coretta Days: Prior Verbal Notification: Recipient Understood Notice: Recipient Signature: Med Rec Note Co-signed by Attending: Coverage Notice Comment: CHU SILVA Last DP export: 11/27/19 12:59 pm Patient Name: TORITO NIEVES Page [id number] at 1536 All edits/amendments must be made on the electronic document DICTATION DATE: 11/27/19 1535 INVESTMENT SPECIALIST: AUGUSTINE 11/27/19 1534 RPT#: [id number] DC DATE: STATUS: ADM IN [facility] [address] [place] [address] END OF REPORT
--- NOTE | 2019-11-27 16:53 | NUR ---
IV DISCONTINUED AND VERBALIZED UNDERSTANDING OF DISCHARGE INSTRUCTIONS. LEAVING UNDER CARE OF CARE PROVIDER. STABLE AT TIME OF DISCHARGE.
--- NOTE | 2019-11-28 12:58 | MORECARE ---
CASE MANAGEMENT DISCHARGE SUMMARY PATIENT: TORITO NIEVES UNIT: [id number] ADM DATE: 11/18/19 AGE: 89 : 30 SEX: M ROOM/BED: D.2240 AUTHOR: AUGUSTINADOC PHYSICIAN: REFERRING PHYSICIAN: OLGA SEGURA MD DATE OF SERVICE: 11/28/19 Discharge Plan Patient Name: TORITO NIEVES Facility: [facility]:[place] : 1930 Planned Disposition: Anticipated Discharge Date: Discharge Date: 11/27/2019 Expected LOS: Initial Reviewer: [id number] Initial Review Date: 11/25/2019 Generated: 11/28/19 1:58 pm Comments DCP- Discharge Planning Updated by [email or web address]: Génesis Waller on 11/27/19 2:[address] Patient Name: TORITO NIEVES Admission Status: ER Accout number: [id number] Admission Date: 11-18-2019 : 1930 Admission Diagnosis:SYNCOPE AND COLLAPSE Attending: OLGA SEGURA Current LOS: 9 Anticipated DC Date: Planned Disposition: Primary Insurance: MEDICARE A & B Discharge Planning Comments: CM SPOKE WITH [facility] AND THEY WILL DELIVER THE WHEELCHAIR TO HIS HOSPITAL ROOM TODAY. Buffer Machine: Génesis Waller DCP- Discharge Planning Updated by [id number]: Génesis Waller on 11/27/19 12:[address] Patient Name: TORITO NIEVES Admission Status: ER Accout number: [id number] Admission Date: 11-18-2019 : 1930 Admission Diagnosis:SYNCOPE AND COLLAPSE Attending: OLGA SEGURA Current LOS: 9 Anticipated DC Date: Planned Disposition: Primary Insurance: MEDICARE A & B Discharge Planning Comments: PATIENT IS HAVING PORT PLACED. I MET WITH HIS LADY FRIEND AND THEY WOULD LIKE HH AND ALSO NEEDS A WC. DIANE SIGNED FOR [facility] AND [facility] FOR WHEEL CHAIR. I WILL FAX REFERRAL TO BOTH PLACES. IMM SIGNED. CM TO FOLLOW AND ASSIST NEEDED. Buffer Machine: Génesis Waller DCP- Discharge Planning Updated by [id number]: Génesis Waller on 11/25/19 9:[address] Patient Name: TORITO NIEVES Admission Status: ER Accout number: [id number] Admission Date: 11-18-2019 : 1930 Admission Diagnosis:SYNCOPE AND COLLAPSE Attending: OLGA SEGURA Current LOS: 7 Anticipated DC Date: Planned Disposition: Primary Insurance: MEDICARE A & B Discharge Planning Comments: CM met with patient AND FAMILY MEMBER at bedside after explaining CM role and obtaining verbal consent. CM discussed availability / needs of home health, REHAB and medical equipment. FAMILY STATES UNSURE OF PLAN AT THIS TIME. MAY NEED HH, I WILL VISIT WITH THEM AGAIN CLOSER TO DC TO HELP WITH ANY DC NEEDS. Buffer Machine: Génesis Waller DCPIA - Discharge Planning Initial Assessment Updated by [id number]: Génesis Waller on 11/25/19 10:52 am * Is the patient Alert and Oriented? Yes * PCP [facility] * [facility] * Preadmission Environment Home with Family * ADLs Independent * Equipment None * List name and contact numbers for known caregivers / representatives who currently or will assist patient after discharge: ALEJANDRA SAGE [facility] [phone] * Community resources currently utilized None * Additional services required to return to the preadmission environment? Yes * Can the patient safely return to the preadmission environment? Yes * Has this patient been hospitalized within the prior 30 days at any hospital? No External Providers [facility] Next Contact Date: Service Request Date: Service Type: Resolution: Reviewer: Comments: Coverage Notice Reviewer: [id number] Bradley Waller Notice Issued Date-Time: 11/27/2019 13:53 Notice Type: IM Discharge Notice Notice Delivered To: Relationship to Patient: Microstrategy Bi Developer Name: Delivery Method: - Coretta Days: Prior Verbal Notification: Recipient Understood Notice: Recipient Signature: Med Rec Note Co-signed by Attending: Coverage Notice Comment: Reviewer: [id number] Bradley Waller Notice Issued Date-Time: 11/27/2019 13:53 Notice Type: Patient Choice Letter Notice Delivered To: Relationship to Patient: Microstrategy Bi Developer Name: Delivery Method: - Coretta Days: Prior Verbal Notification: Recipient Understood Notice: Recipient Signature: Med Rec Note Co-signed by Attending: Coverage Notice Comment: CHU SILVA Last DP export: 11/27/19 2:36 pm Patient Name: TORITO NIEVES Page 16157 at 1258 All edits/amendments must be made on the electronic document DICTATION DATE: 11/28/19 1258 CORE MAKER: AUGUSTINE 11/28/19 1258 RPT#: [id number] DC DATE:11/27/19 STATUS: [facility] [address] [place] [address] END OF REPORT
--- NOTE | 2019-11-29 10:50 | OP ---
PATIENT NAME: TORITO NIEVES MEDICAL RECORD: [id number] :30 LOCATION:D[id number] ADMISSION DATE:11/18/19 SURGEON: DMITRI DUMONT MD DATE OF OPERATION: 11/27/2019 PREOPERATIVE DIAGNOSES: 1. Metastatic gastric cancer. 2. Myelodysplastic syndrome. 3. Macrocytic anemia. POSTOPERATIVE DIAGNOSES: 1. Metastatic gastric cancer. 2. Myelodysplastic syndrome. 3. Macrocytic anemia. PROCEDURE: 1. Left subclavian vein PowerPort placement. 2. Fluoroscopic interpretation. SURGEON: Dmitri Dumont MD REPORT OF PROCEDURE: The patient's left chest was prepped and draped in sterile fashion. A needle was used to cannulate the left subclavian vein and a guidewire was advanced with ease. Fluoro was used to note that the wire was in good position in the venous system. A skin incision was made on the left superolateral chest and a subcutaneous pouch was made over the pectoral fascia. The catheter was tunneled between this pouch and the wire exit site. We then placed the dilator trocar devices over the wire and the wire and dilator were removed. The catheter tip was cut at 27 cm. We then advanced it through the trocar and the trocar was then removed. Fluoro was used to note that the catheter was in good position in the superior vena cava. We then sutured the port down to the pectoral fascia with interrupted 2-0 Prolenes times 2. The subcutaneous tissues were reapproximated with interrupted 3-0 Vicryl and skin was closed with running subcutaneous 5-0 Monocryl. We then accessed the port and it was flushed easily with heparinized saline and there was a good blood return. COMPLICATIONS: None. CONDITION: Stable. ANESTHESIA: General endotracheal. BLOOD LOSS: Minimal. NTS:[id number] Voice Confirmation ID: [id number] DOCUMENT ID: [id number] OPERATIVE REPORT [id number] TORITO NIEVES DMITRI DUMONT MD at 1050 CC: [id number] DICTATION DATE: 11/27/19 1444 ENVIRONMENTAL SERVICES COORDINATOR: 11/27/192232 DIS IN 11/27/19 [place] [id number] [place] [address]
--- NOTE | 2019-12-01 15:59 | MORECARE ---
CASE MANAGEMENT DISCHARGE SUMMARY PATIENT: TORITO NIEVES UNIT: [id number] ADM DATE: 11/18/19 AGE: 89 : 30 SEX: M ROOM/BED: D.2240 AUTHOR: AUGUSTINADOC PHYSICIAN: REFERRING PHYSICIAN: OLGA SEGURA MD DATE OF SERVICE: 12/01/19 Discharge Plan Patient Name: TORITO NIEVES Facility: [facility]:[place] : 1930 Planned Disposition: Anticipated Discharge Date: Discharge Date: 11/27/2019 Expected LOS: Initial Reviewer: [id number] Initial Review Date: 11/25/2019 Generated: 12/01/19 4:59 pm Comments DCP- Discharge Planning Updated by [email or web address]: Génesis Waller on 11/27/19 2:[address] Patient Name: TORITO NIEVES Admission Status: ER Accout number: [id number] Admission Date: 11-18-2019 : 1930 Admission Diagnosis:SYNCOPE AND COLLAPSE Attending: OLGA SEGURA Current LOS: 9 Anticipated DC Date: Planned Disposition: Primary Insurance: MEDICARE A & B Discharge Planning Comments: CM SPOKE WITH [facility] AND THEY WILL DELIVER THE WHEELCHAIR TO HIS HOSPITAL ROOM TODAY. Terminal Gauger: Génesis Waller DCP- Discharge Planning Updated by [email or web address]: Génesis Waller on 11/27/19 12:[address] Patient Name: TORITO NIEVES Admission Status: ER Accout number: [id number] Admission Date: 11-18-2019 : 1930 Admission Diagnosis:SYNCOPE AND COLLAPSE Attending: OLGA SEGURA Current LOS: 9 Anticipated DC Date: Planned Disposition: Primary Insurance: MEDICARE A & B Discharge Planning Comments: PATIENT IS HAVING PORT PLACED. I MET WITH HIS LADY FRIEND AND THEY WOULD LIKE HH AND ALSO NEEDS A WC. DIANE SIGNED FOR [facility] AND [facility] FOR WHEEL CHAIR. I WILL FAX REFERRAL TO BOTH PLACES. IMM SIGNED. CM TO FOLLOW AND ASSIST NEEDED. Terminal Gauger: Génesis Waller DCP- Discharge Planning Updated by [email or web address]: Génesis Waller on 11/25/19 9:[address] Patient Name: TORITO NIEVES Admission Status: ER Accout number: [id number] Admission Date: 11-18-2019 : 1930 Admission Diagnosis:SYNCOPE AND COLLAPSE Attending: OLGA SEGURA Current LOS: 7 Anticipated DC Date: Planned Disposition: Primary Insurance: MEDICARE A & B Discharge Planning Comments: CM met with patient AND FAMILY MEMBER at bedside after explaining CM role and obtaining verbal consent. CM discussed availability / needs of home health, REHAB and medical equipment. FAMILY STATES UNSURE OF PLAN AT THIS TIME. MAY NEED HH, I WILL VISIT WITH THEM AGAIN CLOSER TO DC TO HELP WITH ANY DC NEEDS. Terminal Gauger: Génesis Waller DCPIA - Discharge Planning Initial Assessment Updated by [email or web address]: Génesis Waller on 11/25/19 10:52 am * Is the patient Alert and Oriented? Yes * PCP [facility] * [facility] * Preadmission Environment Home with Family * ADLs Independent * Equipment None * List name and contact numbers for known caregivers / representatives who currently or will assist patient after discharge: ALEJANDRA SAGE [facility] [phone] * Community resources currently utilized None * Additional services required to return to the preadmission environment? Yes * Can the patient safely return to the preadmission environment? Yes * Has this patient been hospitalized within the prior 30 days at any hospital? No Coverage Notice Reviewer: [id number] Bradley Waller Notice Issued Date-Time: 11/27/2019 13:53 Notice Type: IM Discharge Notice Notice Delivered To: Relationship to Patient: Portfolio Specialist Name: Delivery Method: - Coretta Days: Prior Verbal Notification: Recipient Understood Notice: Recipient Signature: Med Rec Note Co-signed by Attending: Coverage Notice Comment: Reviewer: [id number] Bradley Waller Notice Issued Date-Time: 11/27/2019 13:53 Notice Type: Patient Choice Letter Notice Delivered To: Relationship to Patient: Portfolio Specialist Name: Delivery Method: - Coretta Days: Prior Verbal Notification: Recipient Understood Notice: Recipient Signature: Med Rec Note Co-signed by Attending: Coverage Notice Comment: CHU SILVA Last DP export: 11/28/19 11:58 am Patient Name: TORITO NIEVES Page [id number] at 1559 All edits/amendments must be made on the electronic document DICTATION DATE: 12/01/19 8810 ENTRY PROCESSOR: AUGUSTINE 12/01/19 5362 RPT#: [id number] DC DATE:11/27/19 STATUS: DIS IN [facility] [address] [facility] [place] [address] END OF REPORT
== END 2019-11-27 16:55 | disposition home health service (06) | DRG 375 ==
LOC: D.ER 11:49 → OBSVTIME 23:54 → D.EDHOLD 23:54 → D.MS 23:54
PROVIDERS: Emergency Medicine; Family Medicine; Internal Medicine Gastroenterology; Internal Medicine Hematology & Oncology; Specialist; ADMIT Family Medicine; ATTEND Family Medicine
PROC: 07DR3ZX Extraction of Iliac Bone Marrow, Percutaneous Approach, Diagnostic (ICD-10-PCS; 2019-11-19)
PROC: 0DB78ZX Excision of Stomach, Pylorus, Via Natural or Artificial Opening Endoscopic, Diagnostic (ICD-10-PCS; principal; 2019-11-19 15:00)
PROC: 05H633Z Insertion of Infusion Device into Left Subclavian Vein, Percutaneous Approach (ICD-10-PCS; 2019-11-27)
DX: C16.9 Malignant neoplasm of stomach, unspecified (principal); E87.1 Hypo-osmolality and hyponatremia; K92.1 Melena; D53.9 Nutritional anemia, unspecified; R55 Syncope and collapse; M19.90 Unspecified osteoarthritis, unspecified site; N40.0 Benign prostatic hyperplasia without lower urinary tract symptoms; R79.89 Other specified abnormal findings of blood chemistry; H40.9 Unspecified glaucoma; R73.9 Hyperglycemia, unspecified; R42 Dizziness and giddiness